=== PATIENT | female | born 1970 | race Caucasian/White ===

== ENCOUNTER → 2020-09-12 11:13 | Outpatient (CLI) | payer OTHER, BC, SELFPAY ==
--- NOTE | ~2020-09-12 | MM_ITS ---
EXAMINATION: MM screening [facility] BI w robbie HISTORY: Screening TECHNIQUE: Craniocaudal and mediolateral oblique 3-D tomosynthesis images were obtained and synthetic 2-D images were generated. CAD analysis was submitted and interpreted. COMPARISON: Comparison to multiple prior studies sequentially, with oldest reviewed study dated 12/2012. BREAST PARENCHYMAL COMPOSITION: There are scattered areas of fibroglandular density. FINDINGS: There is no evidence of suspicious mass, calcification, or architectural distortion to sugg est malignancy in either breast. There has been no suspicious interval change. IMPRESSION: 1. No mammographic evidence of malignancy. 2. Recommend routine screening mammography in one year. BI-RADS Category 1: Negative Reviewed, dictated and finalized at location A.
== END ==
PROVIDERS: Visit Provider Nurse Practitioner
DX: Z12.31 Encounter for screening mammogram for malignant neoplasm of breast (principal)
CPT/HCPCS: 77063; 77067

== ENCOUNTER → 2022-03-02 16:22 | Outpatient (CLI) | payer OTHER, BC, SELFPAY ==
--- NOTE | ~2022-03-02 | MM_ITS ---
EXAMINATION: MM screening [facility] BI w robbie HISTORY: Screening mammogram TECHNIQUE: Craniocaudal and mediolateral oblique 3-D tomosynthesis images were obtained and synthetic 2-D images were generated. CAD analysis was submitted and interpreted. COMPARISON: 09/12/2020, 04/02/2019, 02/09/2018 BREAST PARENCHYMAL COMPOSITION: There are scattered areas of fibroglandular density. FINDINGS: RIGHT BREAST: There is a possible mass in the middle third outer breast 6 cm from the nipple. LEFT BREAST: There is no suspicious mass, calcification, or architectural distortion to suggest malig donell. There has been no significant interval change. IMPRESSION: 1. Possible right breast mass. 2. Additional mammographic views and possible breast ultrasound are recommended. BI-RADS Category 0: Incomplete: Needs additional imaging evaluation. Reviewed, dictated and finalized at location A. IMPRESSION: 1. Possible right breast mass. 2. Additional mammographic views and possible breast ultrasound are recommended . BI-RADS Category 0: Incomplete: Needs additional imaging evaluation.
== END ==
PROVIDERS: PCP Nurse Practitioner; Visit Provider Nurse Practitioner
DX: Z12.31 Encounter for screening mammogram for malignant neoplasm of breast (principal); R92.8 Other abnormal and inconclusive findings on diagnostic imaging of breast
CPT/HCPCS: 77063; 77067

== ENCOUNTER → 2022-03-23 08:15 | Outpatient (CLI) | payer OTHER, BC, SELFPAY ==
--- NOTE | ~2022-03-23 | MMUS_ITS ---
EXAMINATION: MM diagnostic [facility] RT w robbie, US breast RT limited HISTORY: Possible right breast mass on screening mammogram TECHNIQUE: Additional 3-D tomosynthesis images of the right breast were performed and synthetic 2-D i mages were generated. CAD analysis was submitted and interpreted. High resolution limited right breas t ultrasound was performed. COMPARISON: 03/02/2022, 09/12/2020, 04/02/2019 FINDINGS: MAMMOGRAPHIC FINDINGS: There is a return to baseline fibroglandular appearance with spot compression of the right breast in the area questioned on screening mammogram. ULTRASOUND: No suspicious correlate is identified for the mammographic finding in question. There is a 3 mm cyst at the 10:00 location 7 cm from the nipple. IMPRESSION: 1. No mammographic or sonographic evidence of malignancy. 2. Recommend routine screening mammography in one year. BI-RADS Category 2: Benign finding(s). Reviewed, dictated and finalized at location A. IMPRESSION: 1. No mammographic or sonographic evidence of malignancy. 2. Recommend routine screening mammography in one year. BI-RADS Category 2: Benign finding(s).
== END ==
PROVIDERS: PCP Obstetrics & Gynecology Gynecology; Visit Provider Obstetrics & Gynecology Gynecology
DX: R92.8 Other abnormal and inconclusive findings on diagnostic imaging of breast (principal); N60.01 Solitary cyst of right breast
CPT/HCPCS: 76642; 77061; 77065; G0279

== ENCOUNTER → 2022-07-29 13:06 | Outpatient (CLI) | payer OTHER, BC, SELFPAY ==
--- NOTE | ~2022-07-29 | DEXA_ITS ---
Bone Density Report Name: MARY JO YOST Age: 51 Sex: Female Ethnicity: White Date of : 1970 Indication: postmenopausal; screening for osteoporosis; height loss; Referring Provider: PERCY RIZZO Study: Bone densitometry was performed. Exam Date: July 29, 2022 Accession number: [id number] Bone Density: Region BMD T-score Z-score Classification AP Spine (L1-L4) 0.883 -1.5 -0.5 Osteopenia Femoral Neck (Left) 0.708 -1.3 -0.3 Osteopenia Total Hip (Left) 0.910 -0.3 0.4 Normal Femoral Neck (Right) 0.669 -1.6 -0.7 Osteopenia Total Hip (Right) 0.893 -0.4 0.2 Normal Total Hip Mean 0.902 -0.4 0.3 Normal World Health Organization criteria for BMD impression classify patients as: Normal (T-score at or above -1.0), Osteopenia (T-score between -1.0 and -2.5), or Osteoporosis (T-score at or below -2.5). 10-year Fracture Risk(1): Major Osteoporotic Fracture 6.1% Hip Fracture 0.5% Reported Risk Factors: [place] (), Neck BMD=0.669, BMI=29.9 (1) FRAX(R) Version 3.08. Fracture probability calculated for an untreated patient. Fracture probability may be lower if the patient has received treatment. Clinical Information Provided by Patient: Has used the following medications: Vitamin D Patient maximum height was 68.5 Menopause Age: 41 No regular weight bearing exercise Does not regularly consume dairy products Drinks caffeinated beverages Onset of menses at age 10 Number of children 2 Impression: The patient has low bone mass, based on the Right Femoral Neck T-score. The patient has an estimated ten-year risk of hip fracture of 0.5% and an estimated ten-year risk of major fracture of 6.1%, based on the WHO FRAX algorithm. Discussion: BONE DENSITY IS LOW AT ONE OR MORE SKELETAL SITES. This patient's lowest T-score is low at one or more skeletal sites. It meets the World Health Organization's (WHO) criteria for ?low bone mass? (T-score between -1.0 and -2.5). The patient's 10-year risk of fracture as calculated by FRAX is less than the threshold where pharmacological therapy is recommended by the National Osteoporosis Foundation (NOF). However, all treatment decisions require clinical judgment and consideration of individual patient factors, including patient preferences, comorbidities, previous drug use, risk factors not captured in the FRAX model (e.g., frailty, falls, vitamin D deficiency, increased bone turnover, interval significant decline in bone density) and possible under or overestimation of fracture risk by FRAX. The patient should follow a healthful lifestyle (good nutrition with adequate calcium and vitamin D, and appropriate weight-bearing exercise). Follow-Up: Consider repeating this study in 2 to 3 years to reassess this patient's status, or sooner if there is some new cl
== END ==
PROVIDERS: PCP Obstetrics & Gynecology Gynecology; Visit Provider Obstetrics & Gynecology Gynecology
DX: Z78.0 Asymptomatic menopausal state (principal); M85.88 Other specified disorders of bone density and structure, other site; M85.852 Other specified disorders of bone density and structure, left thigh; M85.851 Other specified disorders of bone density and structure, right thigh
CPT/HCPCS: 77080

== ENCOUNTER 2022-12-02 00:38 | Day surgery (SDC) | payer OTHER, BC, SELFPAY ==
[2022-11-18 15:39] VITALS: BMI 28.5
--- NOTE | 2022-12-01 17:45 | PM.HPGS ---
History of Present Illness History of Present Illness Consent: Risks, benefits, and alternatives have been discussed and questions answered. Patient agrees to proceed with procedure. Chief complaint: family hx colon ca, hx of colon polyps Narrative: Margie Barragan is a 52 year old female referred for colon cancer screening. She has a family history of colon cancer. She herself had tubular adenoma removed 11 years ago. Her last colonoscopy, 6 years ago was negative for polyps. Review of Systems Review of Systems: All systems reviewed & are unremarkable except as noted in HPI and below PMFSH Family History Family History (Updated 02/27/14 @ 07:13 by DOCTOR UNKNOWN) Father Hypertension Family history of coronary artery disease Mother Family history of hypothyroidism Family history of coronary artery disease Social History Social History Smoking status: Never smoker Alcohol intake: current Alcohol use details: socially Substance use: never Substance use type: does not use Living arrangements: with family Spiritual care concerns: No Meds Home Medications and Allergies Home Medications Medication Instructions Recorded Confirmed Type Brisdelle 7.5 mg PO DAILY 11/18/22 11/18/22 History Vitamin D3 5,000 units BYMOUTH DAILY 11/18/22 11/18/22 History amlodipine 5 mg tablet 5 mg PO DAILY 11/18/22 11/18/22 History aspirin 325 mg BYMOUTH DAILY 11/18/22 11/18/22 History atorvastatin 40 mg tablet 40 mg PO DAILY 11/18/22 11/18/22 History calcium 1,200 mg PO DAILY 11/18/22 11/18/22 History metoprolol tartrate 25 mg tablet 25 mg PO BID 11/18/22 11/18/22 History paroxetine mesylate(menop.sym) 7.5 7.5 mg PO DAILY 11/18/22 11/18/22 History mg capsule ramipril 10 mg capsule 10 mg PO DAILY 11/18/22 11/18/22 History valacyclovir 500 mg tablet 500 mg PO DAILY 11/18/22 11/18/22 History Allergies Allergy/AdvReac Type Severity Reaction Status Date / Time propoxyphene Allergy Intermediate Hallucinati Verified 11/18/22 15:34 ng codeine Allergy Unknown Nausea Verified 11/18/22 15:34 Exam Const: General: alert Orientation/consciousness: patient oriented x3 Resp: Auscultation: clear to auscultation bilaterally Cardio: Rhythm: regular rhythm GI: GI Palp: Yes Soft to palpation and No Tenderness to palpation present (GI) Neuro: General: patient oriented x3 Assessment and Plan Assessment and plan (1) Colon cancer screening: Code(s): Z12.11 - Encounter for screening for malignant neoplasm of colon Status: Acute Assessment and Plan: Colonoscopy with possible biopsy or polypectomy or cautery or injection of substances.
[2022-12-02 08:14] VITALS: BP 102/70; PULSE 81; RESP 18; TEMP 36.3; O2SAT 81; BMI 28.6
--- NOTE | 2022-12-02 08:18 | SUR.PREOP ---
No test needed per Dr. Steven
[2022-12-02] MEDS: LACTATED RINGERS 1,000 ML 150 ML IV CONT (08:28)
--- NOTE | 2022-12-02 08:40 | P.PNAN_ITS ---
Anes - Initial Pre Proc Eval Procedure: Operation Date: 12/02/22 09:00 Proposed Procedures p Colonoscopy - Ray Vieyra MD Date/Time: 12/02/22 08:40 Surgeon: Ray Vieyra MD Pre Op Diagnosis: family hx colon ca, hx of colon polyps Patient Data Age: 52 Gender: F Height: 1.73 m Weight: 85.5 kg Last Vital Signs Temp 97.4 F L 12/02/22 08:14 Pulse 81 12/02/22 08:14 Resp 18 12/02/22 08:14 BP 102/70 12/02/22 08:14 Pulse Ox 81 L 12/02/22 08:14 O2 Del Method Room Air 12/02/22 08:14 Allergies Allergy/AdvReac Type Severity Reaction Status Date / Time propoxyphene Allergy Intermediate Hallucinati Verified 11/18/22 15:34 ng codeine Allergy Unknown Nausea Verified 11/18/22 15:34 Home Medications Medication Instructions Recorded Confirmed Type Brisdelle 7.5 mg PO DAILY 11/18/22 11/18/22 History Vitamin D3 5,000 units BYMOUTH DAILY 11/18/22 11/18/22 History amlodipine 5 mg tablet 5 mg PO DAILY 11/18/22 11/18/22 History aspirin 325 mg BYMOUTH DAILY 11/18/22 11/18/22 History atorvastatin 40 mg tablet 40 mg PO DAILY 11/18/22 11/18/22 History calcium 1,200 mg PO DAILY 11/18/22 11/18/22 History metoprolol tartrate 25 mg tablet 25 mg PO BID 11/18/22 11/18/22 History paroxetine mesylate(menop.sym) 7.5 7.5 mg PO DAILY 11/18/22 11/18/22 History mg capsule ramipril 10 mg capsule 10 mg PO DAILY 11/18/22 11/18/22 History valacyclovir 500 mg tablet 500 mg PO DAILY 11/18/22 11/18/22 History Patient hx anesthesia problems: none Family hx anesthesia problems: none Results Review: All pre-operative results and documents have been reviewed as part of the pre- operative evaluation. [facility] Family History Family History (Updated 02/27/14 @ 07:13 by DOCTOR UNKNOWN) Father Hypertension Family history of coronary artery disease Mother Family history of hypothyroidism Family history of coronary artery disease Social History Social History Smoking status: Never smoker Alcohol intake: current Alcohol use details: socially Substance use: never Substance use type: does not use Living arrangements: with family Spiritual care concerns: No Anes - Eval Final PreProcedure Day of Procedure 12/02/22 08:40 Patient weight: obese Heart: regular rate and rhythm Lungs: clear to auscultation Airway: Mallampati scale class II Neurological: alert and oriented Last oral intake: >/= 8 hours ASA classification: III Emergent: no Anesthetic plan: proceed Anesthesia type and monitoring: general GIVS and standard monitoring Results Review: All pre-operative results and documents have been reviewed as part of the pre- operative evaluation. Informed Consent: The patient's anesthetic plan and its attendant risks and benefits were discussed with the patient/family/POA. Questions were solicited and answers provided to the satisfaction of the patient/family/POA.
[2022-12-02 09:11] VITALS: BP 86/53; PULSE 70; RESP 18; O2SAT 94
[2022-12-02 09:21] VITALS: BP 92/55; BP 99/54; PULSE 70; RESP 18; O2SAT 94; O2SAT 97
== END 2022-12-02 09:40 | disposition home or self-care (01) ==
PROVIDERS: Visit Provider Internal Medicine Gastroenterology
PROC: 0DJD8ZZ Inspection of Lower Intestinal Tract, Via Natural or Artificial Opening Endoscopic (ICD-10-PCS; CPT 45378; principal; 2022-12-02 09:00)
DX: Z12.11 Encounter for screening for malignant neoplasm of colon (principal); K57.30 Diverticulosis of large intestine without perforation or abscess without bleeding; K64.8 Other hemorrhoids; Z86.010 Personal history of colon polyps; Z80.0 Family history of malignant neoplasm of digestive organs; Z79.82 Long term (current) use of aspirin; E66.9 Obesity, unspecified; Z68.28 Body mass index [BMI] 28.0-28.9, adult
CPT/HCPCS: 45378; J2704; J7120

== ENCOUNTER 2023-08-29 08:02 | Emergency (ER) | payer OTHER, BC, SELFPAY ==
--- NOTE | 2023-08-29 08:11 | ED.URI ---
HPI - URI/Sore Throat General Chief Complaint: Upper Respiratory Infection Stated Complaint: sorethroat Source: patient, RN notes reviewed and old records reviewed Mode of arrival: ambulatory Limitations: no limitations History of Present Illness HPI Narrative: 52 year old female presents to [facility] with complaint of sore throat, fever, chills, myalgia, fatigue started yesterday. Patient states has slight cough but feels it is from throat irritation. Patient has not taken any medications today for symptoms. Patient denies chest pain, dizziness, weakness, shortness of breath. Related Data Home Medications Medication Instructions Recorded Confirmed amlodipine 5 mg tablet 5 mg PO DAILY 08/29/23 08/29/23 aspirin 325 mg tablet 325 mg PO DAILY 08/29/23 08/29/23 atorvastatin 40 mg tablet 40 mg PO DAILY 08/29/23 08/29/23 metoprolol tartrate 25 mg tablet 25 mg PO DAILY 08/29/23 08/29/23 paroxetine mesylate(menop.sym) 7.5 7.5 mg PO DAILY 08/29/23 08/29/23 mg capsule ramipril 10 mg capsule 10 mg PO DAILY 08/29/23 08/29/23 valacyclovir 500 mg tablet 500 mg PO DAILY 08/29/23 08/29/23 Allergies Allergy/AdvReac Type Severity Reaction Status Date / Time codeine AdvReac Intermediate Gastrointestinal Verified 08/29/23 08:07 Upset propoxyphene AdvReac Intermediate Hallucinati Verified 08/29/23 08:07 ng Review of Systems Constitutional: Constitutional: Reports no additional constitutional complaints, Reports body ache(s), Reports chills, Reports fatigue, Reports fever(s) and Denies headache(s) Eyes: Eyes: Reports no additional eye complaints and Denies blurry vision ENT: Reports system reviewed and no additional complaints, except as documented, Denies vertigo, Denies dizziness, Denies ear discharge, Denies otalgia, Denies facial pain, Denies headache(s), Denies nasal congestion, Denies nasal discharge, Denies sinus pain, Denies sinus pressure and Reports sore throat Cardiovascular: Cardiovascular: Reports no additional cardiovascular complaints, Denies chest pain, Denies chest pain at rest, Denies rapid heart rate and Denies dyspnea Respiratory: Respiratory: Reports no additional respiratory complaints, Denies chest congestion, Reports cough, Denies pain on inspiration, Denies pain with cough and Denies dyspnea Gastrointestinal: Gastrointestinal: Denies abdominal pain, Denies diarrhea, Denies nausea and Denies vomiting Integumentary/Breasts: Skin/Breast: Denies rash Neurologic: Reports system reviewed and no additional complaints, except as documented, Denies vertigo, Denies dizziness and Denies headache(s) Endocrine: Endocrine: Denies fatigue PMFSH Family History Family History Father Hypertension Family history of coronary artery disease Mother Family history of hypothyroidism Family history of coronary artery disease Social History Social History Smoking status: Never smoker Alcohol intake: current Alcohol use details: socially Substance use: never Substance use type: does not use Living arrangements: with family Spiritual care concerns: No Comments At the time of my signature, I reviewed and agree with the nursing past medical, surgical, social, and family history. There is no relevant family history pertinent to the patient complaint. Exam Const: General: cooperative, healthy appearing, no acute distress and well nourished Nutritional Appearance: well nourished Orientation/consciousness: patient oriented x3 Limitations: no limitations HENMT: Head: normal to inspection and normocephalic Ears: external ears normal, TM's normal bilaterally, EAC's normal and mastoids normal Face/Nose/Sinus: Normal nasal mucous membranes and turbinates present and normal facial exam Face and sinus: normal facial exam and sinuses nontender Mouth: Yes Normal oral and palatal mucosa present, Yes
[2023-08-29 08:26] VITALS: BP 119/82; PULSE 109; RESP 16; TEMP 36.7; O2SAT 98
== END 2023-08-29 08:48 | disposition home or self-care (01) ==
PROVIDERS: Emergency Provider Registered Nurse
DX: J02.9 Acute pharyngitis, unspecified (principal); Z20.822 Contact with and (suspected) exposure to COVID-19
CPT/HCPCS: 87081; 87426; 87804; 87880; 99213; G0463

== ENCOUNTER 2023-09-26 13:45 | Outpatient (CLI) | payer OTHER, BC, SELFPAY ==
--- NOTE | ~2023-09-26 | MM_ITS ---
EXAMINATION: MM screening [facility] BI w robbie HISTORY: Screening mammogram TECHNIQUE: Craniocaudal and mediolateral oblique 3-D tomosynthesis images were obtained and synthetic 2-D images were generated. CAD analysis was submitted and interpreted. COMPARISON: 03/23/2022 diagnostic right mammogram and limited right breast ultrasound 03/02/2022, 09/12/2020 screening mammogram examinations BREAST PARENCHYMAL COMPOSITION: There are scattered areas of fibroglandular density. FINDINGS: There is chronic focal scarring upper outer quadrant of the right breast; this is likely du e to prior reported benign right lumpectomy. There is no evidence of suspicious mass, calcification, or new architectural distortion to suggest malignancy in either breast. There has been no suspicious interval change. IMPRESSION: 1. No mammographic evidence of malignancy. 2. Recommend routine screening mammography in one year. BI-RADS Category 2: Benign finding(s). Reviewed, dictated and finalized at location A.
== END 2023-09-26 13:46 | disposition home or self-care (01) ==
LOC: CHSIMG 13:48
PROVIDERS: Visit Provider Advanced Practice Midwife
DX: Z12.31 Encounter for screening mammogram for malignant neoplasm of breast (principal)
CPT/HCPCS: 77063; 77067

== ENCOUNTER 2024-01-16 10:55 | Outpatient (CLI) | payer OTHER, BC, SELFPAY ==
--- NOTE | ~2024-01-16 | US_ITS ---
Pelvic ultrasound. Clinical History: Pelvic pain Technique: Realtime transabdominal and transvaginal scanning of the pelvis was performed. Color flow Doppler and Doppler spectral analysis were performed. Findings: The uterus is anteverted. The endometrial stripe has a thickness of 6 mm. No focal mass is identified. The right ovary is not visualized. No significant right ovarian or adnexal mass is seen. The left ovary measures 2.5 x 1.4 x 1.8 cm. No significant left ovarian or adnexal mass is seen. There is no evidence of free fluid in the cul de sac. Impression: No significant abnormality seen. Right ovary not visualized. Reviewed, dictated and finalized at location . Impression: No significant abnormality seen. Right ovary not visualized.
== END 2024-01-16 10:56 ==
LOC: MICIMG 10:56
PROVIDERS: PCP Nurse Practitioner Women's Health; Visit Provider Nurse Practitioner Women's Health
DX: R10.2 Pelvic and perineal pain (principal)
CPT/HCPCS: 76830

== ENCOUNTER 2024-01-28 21:46 | Emergency (ER) | payer OTHER, BC, SELFPAY ==
[2024-01-28 21:52] VITALS: BP 117/86; PULSE 116; RESP 17; TEMP 37.4; O2SAT 96
--- NOTE | 2024-01-28 22:33 | ED.SKABFB ---
HPI - Skin/Abscess/Foreign Bdy General Chief complaint: Skin/Abscess/Foreign Body Stated complaint: spider bite on toe Time Seen by Provider: 01/28/24 22:28 Source: patient Mode of arrival: ambulatory Limitations: no limitations History of Present Illness HPI narrative: Margie is a 53-year-old female patient presenting to the ER today for possible insect bite in between her 4th and 5th toe. She reports she went down the basement was trying on some old shoes and thinks she may have been bitten by a spider. She is concerned that it may be a brown recluse bite. States that the area was itchy at 1st but now it is painful old and blistered with localized redness and swelling. Denies any fever, chills, body aches. Related Data Home Medications Medication Instructions Recorded Confirmed amlodipine 5 mg tablet 5 mg PO DAILY 08/29/23 08/29/23 aspirin 325 mg tablet 325 mg PO DAILY 08/29/23 08/29/23 atorvastatin 40 mg tablet 40 mg PO DAILY 08/29/23 08/29/23 metoprolol tartrate 25 mg tablet 25 mg PO DAILY 08/29/23 08/29/23 paroxetine mesylate(menop.sym) 7.5 7.5 mg PO DAILY 08/29/23 08/29/23 mg capsule ramipril 10 mg capsule 10 mg PO DAILY 08/29/23 08/29/23 valacyclovir 500 mg tablet 500 mg PO DAILY 08/29/23 08/29/23 Allergies Allergy/AdvReac Type Severity Reaction Status Date / Time codeine AdvReac Intermediate Gastrointestinal Verified 01/28/24 21:56 Upset propoxyphene AdvReac Intermediate Hallucinati Verified 01/28/24 21:56 ng Review of Systems Review of Systems: Pertinent positives per HPI. Patient denies any fever, chills, headache, visual changes, dizziness, cough, runny nose, sore throat, shortness of breath, chest pain, palpitations, nausea, vomiting, diarrhea, constipation, abdominal pain, or any urinary issues. [facility] Family History Family History Father Hypertension Family history of coronary artery disease Mother Family history of hypothyroidism Family history of coronary artery disease Social History Social History Smoking status: Never smoker Alcohol intake: current Alcohol use details: socially Substance use: never Substance use type: does not use Living arrangements: with family Spiritual care concerns: No Comments At the time of my signature, I reviewed and agree with the nursing past medical, surgical, social, and family history. There is no relevant family history pertinent to the patient complaint. Exam Narrative: General: Well-developed, well nourished, in no apparent distress Head: Normocephalic, atraumatic. Cardio: Regular rate and rhythm, s1 and s2 normal, no murmur appreciated. Resp: Clear to auscultation bilaterally, no rhonchi, rales, wheezing or rubs. Integumentary: Reader, warm, and dry, possible insect bite in between the 4th and 5th toes of the left foot. Blistered area with mild redness and swelling, tenderness to palpation with mild erythema Course Course Emergency Course: Portions of this record may have been created with voice recognition software. Vital Signs Vital signs: Vital Signs Temperature 37.4 C 01/28/24 21:52 Pulse Rate 116 H 01/28/24 21:52 Respiratory Rate 17 01/28/24 21:52 Blood Pressure 117/86 01/28/24 21:52 Pulse Oximetry 96 01/28/24 21:52 Oxygen Delivery Room Air 01/28/24 21:52 Temperature 37.4 C 01/28/24 21:52 Pulse Rate 116 H 01/28/24 21:52 Respiratory Rate 17 01/28/24 21:52 Blood Pressure 117/86 01/28/24 21:52 Pulse Oximetry 96 01/28/24 21:52 Oxygen Delivery Room Air 01/28/24 21:52 Vital signs reviewed MDM - Skin/Abscess/Foreign Bdy MDM Narrative Medical decision making narrative: At the time of visit patient is resting comfortably on the exam table. Patient appears to be nontoxic. Plan: I suspect patient has a insect bite infection. Prescription
[2024-01-28] MEDS: CEPHALEXIN 500 MG CAPSULE PO (22:47)
[2024-01-28 22:55] VITALS: BP 114/76; PULSE 99; RESP 15; O2SAT 98
== END 2024-01-28 22:55 | disposition home or self-care (01) ==
LOC: ANHED 22:45
PROVIDERS: Emergency Provider Nurse Practitioner Family
DX: S90.862A Insect bite (nonvenomous), left foot, initial encounter (principal); W57.XXXA Bitten or stung by nonvenomous insect and other nonvenomous arthropods, initial encounter
CPT/HCPCS: 99283; A9270

== ENCOUNTER 2024-09-21 16:13 | Emergency (ER) | payer OTHER, SELFPAY ==
[2024-09-21] VITALS (11 sets, daily range): BP systolic 126–147; BP diastolic 77–103; PULSE 78–98; RESP 13–23; TEMP 36.5; O2SAT 91–100
--- NOTE | ~2024-09-21 | XR_ITS ---
XR chest 2V DATE: 09/21/2024 16:43 INDICATION: Chest pain TECHNIQUE: 2 views COMPARISON: None FINDINGS: Status post sternotomy. Normal heart size. No hilar or mediastinal enlargement. No pulmonary infiltrate or consolidation, pleural effusion or pulmonary vascular congestion or pneumo thorax. Osteopenia. IMPRESSION: Status post sternotomy No active cardiopulmonary disease Reviewed, dictated and finalized at location A.
--- NOTE | 2024-09-21 16:14 | ECG_ITS ---
Test Date: 2024-09-21 16:21:54 Measurements Intervals [place] Rate: 95 P: 15 W[place]: 156 QRS: 59 QRSD: 98 T: 32 QT: 349 QTc: 441 Interpretive Statements SINUS RHYTHM No previous ECG available for comparison Electronically Signed On 09-21-2024 17:44:11 CDT by Daniel Howard M.D.
--- OUTSIDE RECORDS SUMMARY | 2024-09-21 16:15 | XMS_ITS | Clinical Summary ---
Author Organization [email or web address] Address [address] [place] [address] Care Team Providers Care Jewelry Facer Name Role Phone Shaji Escalera MD Primary Care Provider [phone] Source Comments [email or web address],non-owned Affiliates and Associated Physician Practices is amultiple site organization consisting of ambulatory clinics and hospital sitesin [place], [place], [place] and [place]. This disclosure is being madepursuant to the Care Everywhere program and may not contain all information available regarding this patient. Last updated 18.[email or web address] Allergies Active Allergy Reactions Criticality Noted Date Comments Codeine Vomiting Medium 10/17/2022 Medications * Be aware that medications may not be up to date on this document. Alwaysverify current medications with the patient. Medication Sig Dispensed Refills Start Date End Date Status amLODIPine (Norvasc) 5 MG tablet Take 1 (one) tablet by mouth once daily 06/23/2022 Active atorvastatin (Lipitor) 40 MG tablet Take 1 (one) tablet by mouth once daily 03/21/2022 Active metoprolol tartrate IR (Lopressor) 25 MG tablet Take 1 (one) tablet by mouth 2 times daily 08/10/2022 Active ramipril (Altace) 10 MG capsule Take 1 (one) capsule by mouth once daily 03/14/2022 Active valACYclovir (Valtrex) 500 MG tablet Take 1 (one) tablet by mouth once daily 09/27/2022 Active PARoxetine mesylate (Brisdelle) 7.5 MG capsule Take 1 (one) capsule by mouth at bedtime Active Vitamin D, Ergocalciferol, 72253 units CAPS Take 1 tablet by mouth once daily Active aspirin (Aspirin) 325 MG tablet Take 1 (one) tablet by mouth once daily Active Calcium Carbonate-Vit D-Min (CALCIUM 1200 PO) Take 1 tablet by mouth once daily Active oxyCODONE, immediate release, (Roxicodone) 5 MG tabletIndications:Po stoperative state Take 1 (one) tablet by mouth every 4 hours as needed for Pain 5 tablet 01/05/2023 Active ibuprofen (Motrin) 600 MG tablet Take 1 (one) tablet by mouth every 6 hours as needed for Pain 30 tablet 01/05/2023 Active docusate sodium (Colace) 100 MG capsule Take 1 (one) capsule by mouth 2 times daily 60 capsule 01/05/2023 Active Edgar Carb-Mag Hydrox-Simeth (Mylanta Coat & Cool) 1200-270-80 MG/10ML SUSP Take by mouth once daily Active Active Problems Problem Noted Date Diagnosed Date Coronary artery disease [place] coronary artery of [place] heart without angina pectoris 02/02/2017 Overview (10/17/2022): Last Assessment & Plan: No symptoms of myocardial ischemia. She is 10 years out from bypass surgery which was done mostly using arterial grafts. Risk factors have been under good control. A stress echo less than two years ago was nonischemic. Continue aspirin and metoprolol. She is cleared for bladder surgery without further testing. Essential hypertension 02/02/2017 Overview (10/17/2022): Last Assessment & Plan: Blood pressure is adequately controlled on current regimen. No change was made. Pure hypercholesterolemia 02/02/2017 Overview (10/17/2022): Last Assessment & Plan: On chronic lipid lowering therapy with good control. No changes made. Family History Medical History Relation Name Comments Cancer - Colon Father High Cholesterol Father Hypertension Father CAD (Coronary Artery Disease) Mother High Cholesterol Mother Hypertension Mother Thyroid Disease Mother Relation Name Status Comments Father Mother Social History Tobacco Use Types Packs/Day Years Used Date Smoking Tobacco: Never Passive Smoke Exposure: Never Smokeless Tobacco: Never Tobacco Cessation:Counseling Given: Not Answered Alcohol Use Standard Drinks/Week Comments Yes 2 (1 standard drink = 0.6 oz pur e alcohol) Sex and Gender Information Value Date Recorded Sex Assigned at Not on file Gender Identity Not on file Sexual Orientation Not on file Last Filed Vital Signs Vital Sign Reading Time Taken Comments Blood Pressure 120/70 02/09/2023 3:56 PM CDT Pulse 64 01/05/2023 11:42 AM CDT Temperature 36.1 C (96.9 F) 02/09/2023 3:56 PM CDT Respiratory Rate 16 01/05/2023 11:4 2 AM CDT Oxygen Saturation 96% 01/05/2023 11: 42 AM CDT Inhaled Oxygen Concentration - - Weight 85.6 kg (188 lb 12.8 oz) 02/09/2023 3:56 PM CDT Height 174 cm (5' 8.5 ) 02/09/2023 3:56 PM CDT Body Mass Index 28.29 02/09/2023 3:56 PM CDT Plan of Treatment Health Maintenance Due Date Last Done Comments COLOGUARD (AGES 45-75) - COLON CA SCREENING 1968 COLON MONITORING 1968 COLONOSCOPY - COLON CA SCREENING 1968 CT COLONOGRAPHY - COLON CA SCREENING 1968 Colorectal Cancer Screening 1968 FIT - COLON CA SCREENING 1968 FLEX SIG - COLON CA SCREENING 1968 MAMMOGRAM 1968 PAP SMEAR 1968 HIV SCREENING 11/29/1983 HEPATITIS C SCREENING 11/24/1986 DTAP/TDAP/TD VACCINES (1 - Tdap) 11/29/1987 HEPATITIS B VACCINE (1 of 3 - 19+ 3-dose series) 11/29/1987 PNEUMOCOCCAL VACCINE 50+ (1 of 1 - PCV) 2018 ZOSTER VACCINE (1 of 2) 2018 COVID-19 VACCINE ( - season) 2024 06/18/2021, 09/22/2020, 08/13/2020 INFLUENZA VACCINE (#1) 2024 , 04/05/2021, 04/22/2015, Additional history exists DEPRESSION SCREENING 07/03/2024 SCREENING FOR DIABETES 12/27/2025 12/27/2022 HIB VACCINE Aged Out No longer eligi ble based on patient's age to complete this topic HPV VACCINE Aged Out No longer eligi ble based on patient's age to complete this topic MENINGOCOCCAL (Group B) VACCINE SHARED DECISION-MAKING Aged Out No longer eligible based on patient's age to complete this topic MENINGOCOCCAL GROUPS A/C/Y/W VACCINE Aged Out No longer eligible based on patient's age to complete this topic PNEUMOCOCCAL VACCINE Aged Out No long er eligible based on patient's age to complete this topic Medical Devices Implanted Type Area Billet Grinder Device Identifier Shelf Expiration Date Model / Serial / Lot Sys Ureth Supp David Adv Fit Trnvg Polypro Implanted:Qty: 1 on 01/05/2023 by Lluvia Ruano MD at [facility] [employer] 06/20/2024 [id number] / / [id number] Procedures Procedure Name Priority Date/Time Associated Diagnosis Comments BASIC METABOLIC PANEL (CALCIUM TOTAL) Pre-Op 12/27/2022 12:19 PM CDT Preoperative examination from Last 3 Months or Most Recently Relevant to Health Maintenance Results * (ABNORMAL) BASIC METABOLIC PANEL (CALCIUM TOTAL) (12/27/2022 12:19 PM CDT) Glucose 97 70 - 105 mg/dL 12/27/2022 1:13 PM CDT [facility] Sodium 143 136 - 145 mmol/L 12/27/2022 1:13 PM CDT [facility] Potassium 3.9 3.5 - 5.1 mmol/L 12/27/2022 1:13 PM CDT [facility] Chloride 109(H) 98 - 107 mmol/L 12/27/2022 1:13 PM CDT [facility] CO2 25 23 - 31 mmol/L 12/27/2022 1:13 PM CDT [facility] Calcium 9.0 8.4 - 10.4 mg/dL 12/27/2022 1:13 PM CDT [facility] Anion Gap 9 8 - 18 mmol/L 12/27/2022 1:13 PM CDT [facility] BUN 12 9.8 - 20.1 mg/dL 12/27/2022 1:13 PM CDT [facility] Creatinine 0.97 0.57 - 1.11 mg/dL 12/27/2022 1:13 PM CDT [facility] eGFR by CKD-EPI 69(L) >=90 mL/min/1.7 3 m2 12/27/2022 1:13 PM CDT [facility] Blood BLOOD SPECIMEN / Unknown Venipuncture / Unknown 12/27/2022 12:19 PM CDT 12/27/2022 12:50 PM CDT Lluvia Ruano MD LAB - CHEMISTRY ORD ERABLES [facility] [address] [place] [address] from Last 3 Months or Most Recently Relevant to Health Maintenance Care Teams Jewelry Facer Relationship Specialty Start Date End Date Shaji Escalera MD [address] [place] [address] PCP - General 08/25/22
--- OUTSIDE RECORDS SUMMARY | 2024-09-21 16:15 | XMS_ITS | Encounter Summary ---
Author Organization [facility] Healthcare Address [address] [place] [address] Care Team Providers Care Transport Pilot Name Role Phone Linda Mora MD Primary Care Provider Reason for Visit * Reason Onset Date Comments Authorization/Certification 09/09/2024 Encounter Details Date Type Department Care Team (Late st Contact Info) Description 09/09/2024 Telephone [facility] Medical Group Primary Care at [facility] [address] [place] [address] [phone] Linda Mora MD [address] [address] Authorization/Certifica tion Social History Tobacco Use Types Packs/Day Years Used Date Smoking Tobacco: Never Cigarettes Smokeless Tobacco: Never Alcohol Use Standard Drinks/Week Comments Yes 0 (1 standard drink = 0.6 oz pur e alcohol) PHQ-2 Answer Date Recorded PHQ-2 Total Score (If total score is 3 or more points, staff should administer the PHQ-9) 0 05/29/2024 PHQ-9 Answer Date Recorded PHQ-9 Total Score 0 05/29/2024 Personal Safety Answer Date Recorded Have you ever been in or are you currently in a harmful physical or emotional relationship or is someone making you feel afraid or unsafe? Denies 01/30/2024 Comments No Sex and Gender Information Value Date Recorded Sex Assigned at Not on file Legal Sex Female 3:07 PM PLASTIC TILE SETTER Gender Identity Not on file Sexual Orientation Not on file documented as of this encounter Miscellaneous Notes * Telephone Encounter - Monica Rai MA - 09/09/2024 1:46 PM CDT A order for [facility] has been placed. * Telephone Encounter - Teresa Crooks - 09/09/2024 1:08 PM CDT Certification for Test/Procedure Type of Certification Needed: Pre-Cert for Test/Procedure Type of caller:Patient/other caller Type of test/procedure needed: At home sleep study Reason for test/procedure: Patient wakes herself up snoring. Is insurance in chart accurate? [facility] Facility name: Patient not sure. It is her first time getting this done Facility phone#: Wherever Dr. Mora suggests for the at home sleep study. Patient states she heard there is a place that will deliver the devise to patients home. Date test/procedure is scheduled: Not scheduled. Needs assistance setting up from office. Additional Comments: Patients secondary insurance has changed to: [employer] Insurance MemID: [id number] [employer] Does message need to be routed? Yes-Action Needed documented in this encounter Plan of Treatment Not on file documented as of this encounter Visit Diagnoses Not on filedocumented in this encounter Care Teams Transport Pilot Relationship Specialty Start Date End Date Linda Mora MD [address] [address] PCP - General Internal Medicine 05/29/24 documented as of this encounter
--- OUTSIDE RECORDS SUMMARY | 2024-09-21 16:15 | XMS_ITS | Clinical Summary ---
Author Organization [facility] D Address [address] [place] [id number] Care Team Providers Care Brown Sourer Name Role Phone Linda Mora MD Primary Care Provider Allergies Active Allergy Reactions Criticality Noted Date Comments Codeine Propoxyphene-Acetaminophen Medications PARoxetine mesylate (BRISDELLE) 7.5 mg capsule take 1 capsule by oral route every day at bedtime 0 0 09/17/2014 Active cholecalciferol (cholecalcifero l) 400 unit tablet 1 tablet daily 0 02/21/2012 Active valACYclovir (VALTREX) 500 mg tablet take 1 tablet (500MG) by oral route every day 0 02/21/2012 Active calcium carb-mag hydrox-simeth 1,200 mg-270 mg -80 mg/10 mL suspension Take by mouth daily Active aspirin 81 mg chewable tabletIndicatio ns:acute myocardial infarction Take 1 tablet (81 mg total) by mouth daily 90 tablet 3 01/23/2024 Active amLODIPine (NORVASC) 5 mg tablet Take 1 tablet (5 mg total) by mouth daily 90 tablet 3 01/23/2024 Active ramipriL (ALTACE) 10 mg capsule Take 1 capsule (10 mg total) by mouth daily 90 capsule 3 01/23/2024 Active atorvastatin (LIPITOR) 40 mg tablet Take 1 tablet (40 mg total) by mouth daily 90 tablet 3 01/23/2024 Active mupirocin (BACTROBAN) 2 % ointment 01/29/2024 Active benzonatate (TESSALON) 200 mg capsuleIndicati ons:Viral URI with cough Take 1 capsule (200 mg total) by mouth 3 (three) times a day as needed for cough 30 capsule 06/11/2024 Active Active Problems Problem Noted Date Diagnosed Date Encounter for annual physical exam 05/29/2024 Assessment & Plan (05/29/2024 11:33 AM PIECE WORK CHECKER): Reviewed health maintenance issues - diet, exercise, safety issues, smoking status, alcohol use, immunizations, breast exam, papsmear, mammogram (age 40 to 75), screening colonoscopy (age 45 to 75), bone density study for menopausal female. Reviewed medical problems and medication list. Annual labs ordered as appropriate. She will have her mammography, colonoscopy, and pap smear records faxed to our office. History of melanoma 05/29/2024 Assessment & Plan (05/29/2024 11:20 AM PIECE WORK CHECKER): Chronic, stable. S/p Mohs Follows with Dermatology, seen for skin exam 2-3 times per year. Serum total bilirubin elevated 05/29/2024 Assessment & Plan (05/29/2024 11:11 AM PIECE WORK CHECKER): T bili elevated to 1.8 when checked during acute illness in 01/2024. Repeat today with fractionated bilirubin. 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 Is on paroxetine 7.5 mg daily prescribed by her OBGYN for vasomotor symptoms. Family history of colon cancer 05/29/2024 Assessment & Plan (05/29/2024 11:15 AM PIECE WORK CHECKER): Chronic, stable. Has been getting regular colonoscopies which have all been normal, last was less than 5 years ago. Given my card to have her endoscopist fax over records from recent colonoscopy. Ptosis of both eyelids 05/29/2024 Assessment & Plan (07/24/2024 8:24 AM PIECE WORK CHECKER): -longstanding however has worsened over the last year or so -denies diplopia, weakness, difficulty swallowing -father had same issue and had surgery RUL>RODO -pt does endorse difficulty with superior peripheral vision, feels vision is greatly improved with manual lifting of lids -will refer to oculoplastics for ptosis repair next available Assessment & Plan (05/29/2024 11:24 AM PIECE WORK CHECKER): Chronic, ongoing for the last 6 months. Her father had same issue, underwent blepharoplasty. Referral to Ophtho for evaluation. Apnea 05/29/2024 Assessment & Plan (05/29/2024 11:26 AM PIECE WORK CHECKER): Chronic, has been saying she snores for years but lately has been gasping/choking at night and thinks she may stop breathing. Home sleep study ordered. Coronary artery disease invo lving [place] coronary artery of [place] heart without angina pectoris 02/02/2017 Assessment & Plan (05/29/2024 10:37 AM PIECE WORK CHECKER): Chronic, stable. ASCVD: The ASCVD Risk score (Teagan BROWN, et al., 2019) failed to calculate for the following reasons: Cannot find a previous HDL lab The valid total cholesterol range is 130 to 320 mg/dL Stress test: exercise stress 01/2019 normal Previous intervention: s/p CABG Medical Therapy: Anti-Platelet: aspirin 81 mg daily BB: KHANG: ramipril 10 mg daily Anti-anginals: Statin: atorvastatin 40 mg daily Follows with Cardiology Assessment & Plan (11/12/2020 4:22 PM CDT): No symptoms of myocardial ischemia. She is 10 years out from bypass surgery which was done mostly using arterial grafts. Risk factors have been under good control. A stress echo less than two years ago was nonischemic. Continue aspirin and metoprolol. She is cleared for bladder surgery without further testing. Assessment & Plan (02/01/2019 11:47 AM CDT): Asymptomatic following multivessel coronary artery bypass grafting in 2010. Aside from a saphenous vein graft to the posterior descending branch of the left coronary artery, she received all arterial grafts. She has not had an ischemia evaluation in five years, so, even in the absence of symptoms, I recommend a stress echo. Continue aspirin. Assessment & Plan (02/02/2018 1:06 PM CDT): Asymptomatic. Continue Assessment & Plan (02/02/2017 1:48 PM CDT): No symptoms of myocardial ischemia. Continue aspirin and metoprolol. Essential hypertension 02/02/2017 Assessment & Plan (05/29/2024 10:44 AM PIECE WORK CHECKER): Chronic, stable. Complications: None BP controlled on amlodipine 5 mg daily, ramipril 10 mg daily, will continue current management. Counseled patient on importance of a diet low in salt, processed sugar, and saturated fat for blood pressure management. Assessment & Plan (11/12/2020 4:21 PM CDT): Blood pressure is adequately controlled on current regimen. No change was made. Assessment & Plan (02/01/2019 11:47 AM CDT): Blood pressure is adequately controlled on current regimen. No change was made. Assessment & Plan (02/02/2018 1:07 PM CDT): Blood pressure is adequately controlled on current regimen. No change was made. Assessment & Plan (02/02/2017 1:48 PM CDT): Blood pressure is adequately controlled on current regimen. No change was made. Pure hypercholesterolemia 02/02/2017 Assessment & Plan (05/29/2024 10:46 AM PIECE WORK CHECKER): Chronic, stable. ASCVD: The ASCVD Risk score (Teagan BROWN, et al., 2019) failed to calculate for the following reasons: Cannot find a previous HDL lab The valid total cholesterol range is 130 to 320 mg/dL FLP ordered yearly Continue current medications: asa 81 mg daily, atorvastatin 40 mg daily Assessment & Plan (11/12/2020 4:21 PM CDT): On chronic lipid lowering therapy with good control. No changes made. Assessment & Plan (02/01/2019 11:48 AM CDT): On chronic lipid lowering therapy with good control. No changes made. Assessment & Plan (02/02/2018 1:06 PM CDT): On chronic lipid lowering therapy with good control. No changes made. Assessment & Plan (02/02/2017 1:49 PM CDT): LDL checked today is 92. While this is not bad, I would be happy year for which down below 70 particularly with her history of premature coronary artery disease. We discussed this, and I recommended switching from simvastatin to atorvastatin 40 mg daily. She is in agreement with that. Encounters Date Type Department Care Team Description 09/11/2024 Orders Only [facility] Information Management [address] [place] [address] Scanning, Provider 09/09/2024 Telephone [facility] Medical Group Primary Care at [facility] [address] [place] [address] Linda Mora MD Authorization/Certif ication 07/23/2024 3:00 PM PIECE WORK CHECKER Office Visit [facility] [address] [place] [address] Monica Hansen, OD Ptosis of both eyelids 06/24/2024 Telephone [facility] Medical [facility] Cardiology [address] [place] [address] Yoshi Delatorre MD Test Results from Last 3 Months Immunizations Immunization Administration Dates Next Due Influenza, Quadrivalent, Nikia l Culture-based MDCK, Preservative Free, Antibiotic Free, Intramuscular 04/08/2022 Influenza, Trivalent, IM (MDV) 04/05/2021,2013,07/15/2012 Influenza, Trivalent, Preser vative Free, Intramuscular 05/29/2024,04/22/2015 Moderna SARS-CoV-2 Monovalen t Vaccination (12+ YRS) 09/22/2020,08/13/2020 Tdap 01/31/2024 Surgical History Surgery Date Site/Laterality Comments OTHER SURGICAL HISTORY 2008 Benign breast lumpectomy OTHER SURGICAL HISTORY 2005 Right knee ACL replacement OTHER SURGICAL HISTORY 1990 Right ovariectomry for a cyst OTHER SURGICAL HISTORY 1990 Removal of benign tumor CORONARY ARTERY BYPASS GRAFT Coronary Artery Bypass Graft KNEE SURGERY ACL repair BREAST SURGERY R breast cyst, benign OOPHERECTOMY Right cyst removed, benign Medical History Medical History Date Comments Hx Other Medical Anxiety and fat igue Hypertension Hyperlipidemia Heart valve disease Anxiety Heart disease Family History Medical History Relation Name Comments Colon cancer Father Chris Kurtz Hypertension Father Chris Kurtz Arrhythmia Mother Katerina Kurtz Arrhythmias; Heart disease Mother Katerina Kurtz Breast cancer Neg Hx Relation Name Status Comments Father Chris Kurtz Mother Katerina Kurtz Alive Social History Tobacco Use Types Packs/Day Years [...] on file Legal Sex Female 3:07 PM PIECE WORK CHECKER Gender Identity Not on file Sexual Orientation Not on file Obstetrics History Last Filed Vital Signs Vital Sign Reading Time Taken Comments Blood Pressure 122/78 06/11/2024 8:14 AM PIECE WORK CHECKER Pulse 102 06/11/2024 8:14 AM PIECE WORK CHECKER Temperature 36.4 C (97.6 F) 06/11/2024 8:14 AM PIECE WORK CHECKER Respiratory Rate 20 06/11/2024 8:14 AM PIECE WORK CHECKER Oxygen Saturation 98% 06/11/2024 8:14 AM PIECE WORK CHECKER Inhaled Oxygen Concentration - - Weight 86.2 kg (190 lb) 06/11/2024 8:14 AM PIECE WORK CHECKER Height 172.7 cm (5' 8 ) 05/29/2024 11:01 AM PIECE WORK CHECKER Body Mass Index 28.89 05/29/2024 11:01 AM PIECE WORK CHECKER Plan of Treatment Health Maintenance Due Date Last Done Comments Hepatitis B Screening 1986 Zoster Vaccine (1 of 2) 2018 Covid-19 Vaccine ( season) 2024 06/18/2021, 09/22/2020, 08/13/2020 Cervical Cancer Screening 08/21/2024 08/21/2023 Breast Cancer Screening-Mammogram 09/25/2024 09/26/2023, 09/14/2020 Depression Screening 05/29/2025 05/29/2024, 05/29/20 24 Regular Well Visit/Exam 18-64 05/29/2025 05/29/2024 Colon Cancer Screening-Colonoscopy 12/02/2032 12/02/2022 DTaP/Tdap/Td Vaccine (2 - Td or Tdap) 01/30/2034 01/31/2024 Colon Cancer Screening-CT Colonography Discontinued 12/02/2022 Colon Cancer Screening-DNA Stool Discontinued 12/02/2022 Colon Cancer Screening-FIT Discontinued 12/02/2022 Colon Cancer Screening-Sigmoidoscopy Discontinued 12/02/2022 Hepatitis C Screening Completed 05/29/2024 Influenza Vaccine Completed 05/29/2024, , 04/05/2021, Additional history exists Pneumococcal vaccine <65 Aged Out No longer eligible based on patient's age to complete this topic Procedures Procedure Name Priority Date/Time Associated Diagnosis Comments SCAN - OTHER ORDERS 09/11/2024 1 1:11 AM CDT HEPATITIS C ANTIBODY Routine 05/29/2024 11:45 AM PIECE WORK CHECKER Need for hepatitis C screening test COLONOSCOPY Routine 12/02/2022 SCREENING MAMMOGRAM BILATERAL W RONAK Schedule Routine, Read Routine (OP Routine) 09/14/2020 from Last 3 Months or Most Recently Relevant to Health Maintenance Results * SCAN - OTHER ORDERS (09/11/2024 11:11 AM CDT) us Provider Scanning Final Result * Hepatitis C antibody Blood (05/29/2024 11:45 AM PIECE WORK CHECKER) Hep C Ab Nonreactive Nonreactive Comment: Interpretive Data Nonreactive: Antibodies to HCV not detected. Does NOT exclude the possibility of recent exposure to HCV. Equivocal: Equivocal for HCV antibodies. Supplemental molecular testing will be automatically performed to determine infection status in accordance with current CDC screening recommendations. Reactive: Positive for HCV antibodies. This may represent current or past HCV infection. Supplemental molecular testing will be automatically performed to determine current infection status in accordance with current CDC screening recommendations. Interpretive data was last revised on 2019. Blood 05/29/2024 11:4 5 AM PIECE WORK CHECKER 05/29/2024 6:29 PM PIECE WORK CHECKER Linda Mora MD LAB MICROBIOLOGY - GEN ERAL ORDERABLES Final Result [facility] [address] Department [place] [address] * (ABNORMAL) Colonoscopy (12/02/2022) Anatomical Region Laterality Modality Other Historical Provider ENDOSCOPY PROCEDURES Nancy l Result * Screening Mammogram Bilateral W Ronak (09/14/2020) Anatomical Region Laterality Modality Breast Bilateral Mammography Historical Provider IMG MAMMO PROCEDURES Nancy l Result from Last 3 Months or Most Recently Relevant to Health Maintenance Insurance [facility] Address: [facility] [id number] [place] [address] [facility] HMO/PPO Address: [address] [address] [place] [address] [facility] Address: [facility] [id number] [place] [address] [facility] HMO/PPO Address: [address] [address] [place] [address] [facility] [employer] B[employer]EFIT PLAN Care Teams Brown Sourer Relationship Specialty Start Date End Date Linda Mora MD [address] [address] PCP - General Internal Medicine 05/29/24
--- OUTSIDE RECORDS SUMMARY | 2024-09-21 16:15 | XMS_ITS | Referral Summary ---
Author Organization [facility] D Address [address] [place] [address] Care Team Providers Care Multiple Drill Operator Name Role Phone Linad Mora MD Primary Care Provider Encounters Date Type Department Care Team Description 09/11/2024 Orders Only [facility] Health Information Management [address] [place] [address] Scanning, Provider 09/09/2024 Telephone [facility] Medical Group Primary Care at [facility] [address] [place] [address] Linda Mora MD Authorization/Certif ication 07/23/2024 3:00 PM RED HAT LINUX ADMINISTRATOR Office Visit [facility] [address] [place] [address] Monica Hansen, OD Ptosis of both eyelids 06/24/2024 Telephone [facility] Medical [facility] Cardiology [address] [place] [address] Yoshi Delatorre MD Test Results from Last 3 Months Allergies Active Allergy Reactions Criticality Noted Date [...] 05/29/2024 Assessment & Plan (05/29/2024 11:33 AM RED HAT LINUX ADMINISTRATOR): Reviewed health maintenance issues - diet, exercise, [...] 05/29/2024 Assessment & Plan (05/29/2024 11:20 AM RED HAT LINUX ADMINISTRATOR): Chronic, stable. S/p Mohs Follows with Dermatology, seen for skin exam 2-3 times per year. Serum total bilirubin elevated 05/29/2024 Assessment & Plan (05/29/2024 11:11 AM RED HAT LINUX ADMINISTRATOR): T bili elevated to 1.8 when checked during acute illness in 01/2024. Repeat today with fractionated bilirubin. 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 Is on paroxetine 7.5 mg daily prescribed by her OBGYN for vasomotor symptoms. Family history of colon cancer 05/29/2024 Assessment & Plan (05/29/2024 11:15 AM RED HAT LINUX ADMINISTRATOR): Chronic, stable. Has been getting regular colonoscopies which have all been normal, last was less than 5 years ago. Given my card to have her endoscopist fax over records from recent colonoscopy. Ptosis of both eyelids 05/29/2024 Assessment & Plan (07/24/2024 8:24 AM RED HAT LINUX ADMINISTRATOR): -longstanding however has worsened over the last year or so -denies diplopia, weakness, difficulty swallowing -father had same issue and had surgery RUL>RODO -pt does endorse difficulty with superior peripheral vision, feels vision is greatly improved with manual lifting of lids -will refer to oculoplastics for ptosis repair next available Assessment & Plan (05/29/2024 11:24 AM RED HAT LINUX ADMINISTRATOR): Chronic, ongoing for the last 6 months. Her father had same issue, underwent blepharoplasty. Referral to Ophtho for evaluation. Apnea 05/29/2024 Assessment & Plan (05/29/2024 11:26 AM RED HAT LINUX ADMINISTRATOR): Chronic, has been saying she snores for years but lately has been gasping/choking at night and thinks she may stop breathing. Home sleep study ordered. Coronary artery disease invo lving [place] coronary artery of [place] heart without angina pectoris 02/02/2017 Assessment & Plan (05/29/2024 10:37 AM RED HAT LINUX ADMINISTRATOR): Chronic, stable. ASCVD: The ASCVD Risk score (Teagan DK, et al., 2019) failed to calculate for [...] 02/02/2017 Assessment & Plan (05/29/2024 10:44 AM RED HAT LINUX ADMINISTRATOR): Chronic, stable. Complications: None BP controlled on [...] 02/02/2017 Assessment & Plan (05/29/2024 10:46 AM RED HAT LINUX ADMINISTRATOR): Chronic, stable. ASCVD: The ASCVD Risk score [...] daily. She is in agreement with that. Immunizations Immunization Administration Dates Next Due Influenza, Quadrivalent, Nikia l Culture-based MDCK, Preservative Free, Antibiotic Free, Intramuscular 04/08/2022 Influenza, Trivalent, IM (MDV) 04/05/2021,2013,07/15/2012 Influenza, Trivalent, Preser vative Free, Intramuscular 05/29/2024,04/22/2015 Moderna SARS-CoV-2 Monovalen t Vaccination (12+ YRS) 09/22/2020,08/13/2020 Tdap 01/31/2024 Social History Tobacco Use Types Packs/Day Years [...] on file Legal Sex Female 3:07 PM RED HAT LINUX ADMINISTRATOR Gender Identity Not on file Sexual Orientation Not on file Last Filed Vital Signs Vital Sign Reading Time Taken Comments Blood Pressure 122/78 06/11/2024 8:14 AM RED HAT LINUX ADMINISTRATOR Pulse 102 06/11/2024 8:14 AM RED HAT LINUX ADMINISTRATOR Temperature 36.4 C (97.6 F) 06/11/2024 8:14 AM RED HAT LINUX ADMINISTRATOR Respiratory Rate 20 06/11/2024 8:14 AM RED HAT LINUX ADMINISTRATOR Oxygen Saturation 98% 06/11/2024 8:14 AM RED HAT LINUX ADMINISTRATOR Inhaled Oxygen Concentration - - Weight 86.2 kg (190 lb) 06/11/2024 8:14 AM RED HAT LINUX ADMINISTRATOR Height 172.7 cm (5' 8 ) 05/29/2024 11:01 AM RED HAT LINUX ADMINISTRATOR Body Mass Index 28.89 05/29/2024 11:01 AM RED HAT LINUX ADMINISTRATOR Plan of Treatment Not on file Procedures Procedure Name Priority Date/Time Associated Diagnosis Comments SCAN - OTHER ORDERS 09/11/2024 1 1:11 AM CDT HEPATITIS C ANTIBODY Routine 05/29/2024 11:45 AM RED HAT LINUX ADMINISTRATOR Need for hepatitis C screening test COLONOSCOPY Routine 12/02/2022 SCREENING MAMMOGRAM BILATERAL W RONAK Schedule Routine, Read Routine (OP Routine) 09/14/2020 from Last 3 Months or Most Recently Relevant to Health Maintenance Results * SCAN - OTHER ORDERS (09/11/2024 11:11 AM CDT) us Provider Scanning Final Result * Hepatitis C antibody Blood (05/29/2024 11:45 AM RED HAT LINUX ADMINISTRATOR) Hep C Ab Nonreactive Nonreactive Comment: Interpretive [...] on 2019. Blood 05/29/2024 11:4 5 AM RED HAT LINUX ADMINISTRATOR 05/29/2024 6:29 PM RED HAT LINUX ADMINISTRATOR Linda Mora MD LAB MICROBIOLOGY - GEN ERAL ORDERABLES Final Result [facility] [address] Department [place] [address] * (ABNORMAL) Colonoscopy (12/02/2022) Anatomical Region Laterality Modality Other Historical Provider ENDOSCOPY PROCEDURES Nancy l Result * Screening Mammogram Bilateral W Ronak (09/14/2020) Anatomical Region Laterality Modality Breast Bilateral Mammography Historical Provider IMG MAMMO PROCEDURES Nancy l Result from Last 3 Months or Most Recently Relevant to Health Maintenance Insurance [facility] CHO[facility] CHOICE PLUS [facility] HEALTH BENEFIT PLAN Care Teams Multiple Drill Operator Relationship Specialty Start Date End Date Linda Mora MD [address] [address] PCP - General Internal Medicine 05/29/24
--- OUTSIDE RECORDS SUMMARY | 2024-09-21 16:15 | XMS_ITS | CONTINUITY OF CARE DOCUMENT ---
Author Name chaunceyanaliamonica Address Unknown Organization [facility] Address [address] [place] [address] Phone [phone] Care Team Providers Care Building Supplies Salesperson Retail Name Role Phone JOBY GOMEZ, PHIL Phan Unavailable [phone] FRANCHESCA GOMEZ, EJ Unavailable INSURANCE PROVIDERS Payer name Policy type / Coverage type [place] [employer] ID BLUE PREFERRED HMO [facility] [id number] 1 [facility] [id number]
[2024-09-21 16:30] LABS: Basophils Percent Auto 0.5 % (0.2-1.2); Eosinophils Absolute Auto 0.1 K/mm3 (0-0.3); Eosinophils Percent Auto 1.5 % (0-4.4); Hematocrit 46.4 % (37.0-47.0); Hemoglobin 15.5 g/dL (12.0-15.0); Immature Granulocyte Absolute 0.01 K/mm3 (0.00-0.031); Immature Granulocyte Percent A 0.2 % (0-0.5); Lymphocytes Absolute Auto 2.27 K/mm3 (0.9-3.2); Lymphocytes Percent Auto 41.5 % (18.3-44.2); Mean Corpuscular HGB Conc 33.4 g/dl (32-36); Mean Corpuscular Hemoglobin 30.2 pg (26-34); Mean Corpuscular Volume 90.3 fl (80-100); Mean Platelet Volume 10.1 fl (7.4-10.4); Monocytes Absolute Auto 0.7 K/mm3 (0.1-0.6); Monocytes Percent Auto 13.2 % (2.6-8.5); Neutrophils Absolute Auto 2.4 K/mm3 (1.3-6.7); Neutrophils Percent Auto 43.1 % (45.5-73.1); Platelet Count Result 209 k/mm3 (150-375); Red Blood Count 5.14 M/mm3 (4.2-5.4); Red Cell Distribution Width 13.2 % (11.5-14.5); White Blood Count 5.5 K/mm3 (4.5-10.0)
[2024-09-21 16:40] LABS: Alanine Aminotransferase 29 U/L (6-35); Albumin Level 4.6 g/dL (3.5-5.1); Alkaline Phosphatase 81 U/L (38-126); Anion Gap 9 mmol/L (4-12); Aspartate Amino Transferase 35 U/L (14-36); Bilirubin,Total 1.3 mg/dL (0.2-1.3); Blood Urea Nitrogen 15 mg/dL (7-17); Calcium 9.5 mg/dL (8.4-10.2); Carbon Dioxide 30 mmol/L (22-30); Chloride 103 mmol/L (98-107); Estimated CRCL calculation 78 ml/min; Estimated Glomerular Filt Rate > 60; Glucose 86 mg/dL (65-110); Lipase 86 U/L (23-300); Potassium 3.9 mmol/L (3.4-5.0); Sodium 142 mmol/L (137-145)
[2024-09-21 16:42] LABS: Partial Thromboplastin Time 26.9 Seconds (22.3-36.8)
[2024-09-21 16:52] LABS: Troponin I < 0.012 ng/mL (0.000-0.034)
--- NOTE | 2024-09-21 16:53 | ED_ITS ---
HPI - General Adult General Chief complaint: Chest Pain Stated complaint: chest pain Time Seen by Provider: 09/21/24 16:17 History of Present Illness HPI narrative: 53-year-old female presents emergency department for evaluation for episode of chest pain. Patient was having chest pain that radiated to her jaw that lasted approximately 25 minutes. Patient does have a prior history of coronary disease and a CABG approximately 15 years ago. Patient follows up with [facility]. Patient has not had a recent stress test. Patient denies any current chest pain chest pressure or chest tightness. Patient feels back at her baseline. Related Data Home Medications ?Medication ?Instructions ?Recorded ?Confirmed ?Last Taken ?Type amlodipine 5 mg tablet 5 mg PO DAILY 08/29/23 08/29/23 Unknown History aspirin 325 mg tablet 325 mg PO DAILY 08/29/23 08/29/23 Unknown History atorvastatin 40 mg tablet 40 mg PO DAILY 08/29/23 08/29/23 Unknown History metoprolol tartrate 25 mg tablet 25 mg PO DAILY 08/29/23 08/29/23 Unknown History paroxetine mesylate(menop.sym) 7.5 7.5 mg PO DAILY 08/29/23 08/29/23 Unknown History mg capsule ramipril 10 mg capsule 10 mg PO DAILY 08/29/23 08/29/23 Unknown History valacyclovir 500 mg tablet 500 mg PO DAILY 08/29/23 08/29/23 Unknown History Allergies Allergy/AdvReac Type Severity Reaction Status Date / Time codeine AdvReac Intermediate Gastrointestinal Verified 09/21/24 16:22 Upset propoxyphene AdvReac Intermediate Hallucinati Verified 09/21/24 16:22 ng Review of Systems 2 Review of Systems: All systems reviewed & are unremarkable except as noted in HPI and below PMFSH Family History Family History Father Hypertension Family history of coronary artery disease Mother Family history of hypothyroidism Family history of coronary artery disease Social History Social History Smoking status: Never smoker Alcohol intake: current Alcohol use details: socially Substance use: never Substance use type: does not use Living arrangements: with family Spiritual care concerns: No Exam 2 Narrative: APPEARANCE: Well appearing, no pain, no distress, well-nourished. HEAD: normocephalic, atraumatic. EYES: PERRLA/EOMI, conjunctivae clear. NOSE: Normal no drainage EARS:TMS clear with good light reflex. THROAT: Pharynx clear, no exudate. NECK: Supple. No adenopathy, no masses. RESPIRATORY: Airway patent, respirations nonlabored. Clear to auscultation bilaterally, no rales, rhonchi, wheezing. CARDIOVASCULAR: Regular rate and rhythm without murmurs rubs or gallops. ABDOMINAL: Soft, nontender, nondistended, normal bowel sounds MUSCULOSKELETAL: Moves all extremities. Strength/ROM intact, No edema, No calf tenderness. NEURO: Alert. Cranial nerves II through XII intact. Good gait. Good coordination SKIN: Warm, dry. Normal Color Course Vital Signs Vital signs: Vital Signs Temperature 97.7 F 09/21/24 16:18 Pulse Rate 98 09/21/24 16:18 Respiratory Rate 16 09/21/24 16:18 Blood Pressure 145/103 H 09/21/24 16:18 Pulse Oximetry 98 09/21/24 16:18 Oxygen Delivery Room Air 09/21/24 16:18 Temperature 97.7 F 09/21/24 16:18 Pulse Rate 83 09/21/24 17:42 Respiratory Rate 13 09/21/24 17:34 Blood Pressure 144/92 H 09/21/24 17:42 Pulse Oximetry 100 09/21/24 17:34 Oxygen Delivery Room Air 09/21/24 16:26 Medical Decision Making [facility] Narrative Medical decision making narrative: 53-year-old female presents to the emergency department for evaluation for chest pain that last approximately 25 minutes but resolved prior to arrival. Patient is currently afebrile with no leukocytosis and hemoglobin of 15.5. Patient's INR is 1.0. Patient has no acute abnormalities on his CMP had negative serial troponins and negative serial EKGs. Patient's chest x-ray shows no acute cardiopulmonary abnormality. Differential Diagnosis Differential Diagnosis: ACS, pneumonia, pneumothorax Vital Signs Vital Signs: Vital Signs Temperature 97.7 F 09/21/24 16:18 Pulse Rate 98 09/21/24 16:18 Respiratory Rate 16 09/21/24 16:18 Blood Pressure 145/103 H 09/21/24 16:18 Pulse Oximetry 98 09/21/24 16:18 Oxygen Delivery Room Air 09/21/24 16:18 Temperature 97.7 F 09/21/24 16:18 Pulse Rate 83 09/21/24 17:42 Respiratory Rate 13 09/21/24 17:34 Blood Pressure 144/92 H 09/21/24 17:42 Pulse Oximetry 100 09/21/24 17:34 Oxygen Delivery Room Air 09/21/24 16:26 Lab Data Lab results reviewed: Yes I reviewed the patient's lab results. 09/21/24 16:25 09/21/24 16:25 Labs: Lab Results 09/21/24 09/21/24 Range/Units 16:25 19:18 WBC 5.5 (4.5-10.0) K/mm3 RBC 5.14 (4.2-5.4) M/mm3 Hgb 15.5 H (12.0-15.0) g/dL Hct 46.4 (37.0-47.0) % MCV 90.3 (80-100) fl MCH 30.2 (26-34) pg MCHC 33.4 (32-36) g/dl RDW 13.2 (11.5-14.5) % Plt Count 209 (150-375) k/mm3 MPV 10.1 (7.4-10.4) fl Immature Gran % (Auto) 0.2 (0-0.5) % Neut % (Auto) 43.1 L (45.5-73.1) % Lymph % (Auto) 41.5 (18.3-44.2) % Dixon % (Auto) 13.2 H (2.6-8.5) % Eos % (Auto) 1.5 (0-4.4) % Baso % (Auto) 0.5 (0.2-1.2) % Lymph # (Auto) 2.27 (0.9-3.2) K/mm3 Dixon # (Auto) 0.7 H (0.1-0.6) K/mm3 Eos # (Auto) 0.1 (0-0.3) K/mm3 Baso # (Auto) 0.0 (0.0-0.1) K/mm3 Abs Immat Gran (auto) 0.01 (0.00-0.031) K/mm3 Absolute Neuts (auto) 2.4 (1.3-6.7) K/mm3 Absolute Nucleated RBC 0.000 (0.0-0.012) K/mm3 Nucleated RBC % 0.0 (0.0-0.2) % PT 13.0 (11.1-14.7) Seconds INR 1.0 APTT 26.9 (22.3-36.8) Seconds Sodium 142 (137-145) mmol/L Potassium 3.9 (3.4-5.0) mmol/L Chloride 103 (98-107) mmol/L Carbon Dioxide 30 (22-30) mmol/L Anion Gap 9 (4-12) mmol/L BUN 15 (7-17) mg/dL Creatinine 0.82 (0.7-1.0) mg/dL Estim Creat Clear Calc 78 ml/min Estimated GFR > 60 (59 - ) Glucose 86 (65-110) mg/dL Calcium 9.5 (8.4-10.2) mg/dL Total Bilirubin 1.3 (0.2-1.3) mg/dL AST 35 (14-36) U/L ALT 29 (6-35) U/L Alkaline Phosphatase 81 (38-126) U/L Troponin I < 0.012 < 0.012 (0.000-0.034) ng/mL Total Protein 8.0 (6.3-8.2) g/dL Albumin 4.6 (3.5-5.1) g/dL Lipase 86 (23-300) U/L Imaging Data Radiologist's impression: Impressions Chest X-Ray 09/21/24 17:24 IMPRESSION: Status post sternotomy No active cardiopulmonary disease Discharge Plan Discharge Clinical Impression: Chest pain Patient Disposition: Home, Self-Care Condition: Stable Instructions: Antibiotic Form, Chest Pain (ED) Additional Instructions: Have close follow-up with your benefits advisor for additional outpatient cardiac testing. If you have any worsening symptoms then please call or return to the emergency department. Patient Language: Citizen Of [place] Prescriptions: No Action atorvastatin 40 mg tablet 40 mg PO DAILY amlodipine 5 mg tablet 5 mg PO DAILY valacyclovir 500 mg tablet 500 mg PO DAILY ramipril 10 mg capsule 10 mg PO DAILY metoprolol tartrate 25 mg tablet 25 mg PO DAILY paroxetine mesylate(menop.sym) 7.5 mg capsule 7.5 mg PO DAILY aspirin 325 mg Tablet 325 mg PO DAILY cephalexin 500 mg capsule 500 mg PO Q8H 10 Days Qty: 30 0RF mupirocin 2 % ointment 1 applic topical BID 7 Days Qty: 22 0RF Follow-up/Referrals: PHYSICIAN NOT ON STAFF,NONSTAFF [Primary Care Provider] - Quality HEART score for chest pain patients History: slightly suspicious ECG: normal Age: > 45 and < 65 years Risk factors: 1 or 2 risk factors Troponin: < or = to 1x normal limit Heart score: 2
--- OUTSIDE RECORDS SUMMARY | 2024-09-21 16:54 | XMS_ITS | Encounter Summary ---
Author Organization [facility] Healthcare Address [address] [place] [address] Care Team Providers Care Line Leader Name Role Phone Linda Mroa MD Primary Care Provider Reason for Visit * Reason Onset Date Comments Authorization/Certification 09/09/2024 Encounter Details Date Type Department Care Team (Late st Contact Info) Description 09/09/2024 Telephone [facility] Medical Group Primary Care at [facility] [address] [facility] [address] [place] [phone] Linda Mora MD [address] [address] Authorization/Certifica tion Social History Tobacco [...] on file Legal Sex Female 3:07 PM TIGHT BARREL INSPECTOR Gender Identity Not on file Sexual Orientation Not on file documented as of this encounter Miscellaneous Notes * Telephone Encounter - Monica Rai MA - 09/09/2024 1:46 PM CDT A order for [place] [facility] has been placed. * Telephone Encounter - Teresa Crooks - 09/09/2024 1:08 PM CDT Certification for Test/Procedure Type of Certification Needed: Pre-Cert for Test/Procedure Type of caller:Patient/other caller Type of test/procedure needed: At home sleep study Reason for test/procedure: Patient wakes herself up snoring. Is insurance in chart accurate? [facility] Facility name: Patient not sure. It is her first time getting this done Facility phone#: Wherever Dr. Mora suggests for the at home sleep study. Patient states she heard there is a place that will deliver the devise to patients home. Date test/procedure is scheduled: Not scheduled. Needs assistance setting up from office. Additional Comments: Patients secondary insurance has changed to: [employer] Insurance MemID: [id number] [employer] Does message need to be routed? Yes-Action Needed documented in this encounter Plan of Treatment Not on file documented as of this encounter Visit Diagnoses Not on filedocumented in this encounter Care Teams Line Leader Relationship Specialty Start Date End Date Linda Mora MD [address] [address] PCP - General Internal Medicine 05/29/24 documented as of this encounter
--- OUTSIDE RECORDS SUMMARY | 2024-09-21 16:54 | XMS_ITS | Referral Summary ---
Author Organization [facility] D Address [address] [place] [address] Care Team Providers Care Loop Machine Operator Name Role Phone Linda Mora MD Primary Care Provider Encounters Date Type Department Care Team Description 09/11/2024 Orders Only [facility] Health Information Management [address] [place] [address] Scanning, Provider 09/09/2024 Telephone [facility] Medical Group Primary Care at [facility] [address] [facility] [address] [place] [address] Linda Mora MD Authorization/Certif ication 07/23/2024 3:00 PM FLOWER PICKER Office Visit [facility] [address] [facility] [address] [place] [address] Monica Hansen, OD Ptosis of both eyelids 06/24/2024 Telephone [facility] Medical [facility] Cardiology [address] [facility] [address] [place] [address] Yoshi Delatorre MD Test Results [...] 05/29/2024 Assessment & Plan (05/29/2024 11:33 AM FLOWER PICKER): Reviewed health maintenance issues - diet, exercise, [...] 05/29/2024 Assessment & Plan (05/29/2024 11:20 AM FLOWER PICKER): Chronic, stable. S/p Mohs Follows with Dermatology, seen for skin exam 2-3 times per year. Serum total bilirubin elevated 05/29/2024 Assessment & Plan (05/29/2024 11:11 AM FLOWER PICKER): T bili elevated to 1.8 when checked during acute illness in 01/2024. Repeat today with fractionated bilirubin. 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 Is on paroxetine 7.5 mg daily prescribed by her OBGYN for vasomotor symptoms. Family history of colon cancer 05/29/2024 Assessment & Plan (05/29/2024 11:15 AM FLOWER PICKER): Chronic, stable. Has been getting regular colonoscopies which have all been normal, last was less than 5 years ago. Given my card to have her endoscopist fax over records from recent colonoscopy. Ptosis of both eyelids 05/29/2024 Assessment & Plan (07/24/2024 8:24 AM FLOWER PICKER): -longstanding however has worsened over the last year or so -denies diplopia, weakness, difficulty swallowing -father had same issue and had surgery RUL>RODO -pt does endorse difficulty with superior peripheral vision, feels vision is greatly improved with manual lifting of lids -will refer to oculoplastics for ptosis repair next available Assessment & Plan (05/29/2024 11:24 AM FLOWER PICKER): Chronic, ongoing for the last 6 months. Her father had same issue, underwent blepharoplasty. Referral to Ophtho for evaluation. Apnea 05/29/2024 Assessment & Plan (05/29/2024 11:26 AM FLOWER PICKER): Chronic, has been saying she snores for years but lately has been gasping/choking at night and thinks she may stop breathing. Home sleep study ordered. Coronary artery disease invo lving [place] coronary artery of [place] heart without angina pectoris 02/02/2017 Assessment & Plan (05/29/2024 10:37 AM FLOWER PICKER): Chronic, stable. ASCVD: The ASCVD Risk score [...] 02/02/2017 Assessment & Plan (05/29/2024 10:44 AM FLOWER PICKER): Chronic, stable. Complications: None BP controlled on [...] 02/02/2017 Assessment & Plan (05/29/2024 10:46 AM FLOWER PICKER): Chronic, stable. ASCVD: The ASCVD Risk score [...] on file Legal Sex Female 3:07 PM FLOWER PICKER Gender Identity Not on file Sexual Orientation Not on file Last Filed Vital Signs Vital Sign Reading Time Taken Comments Blood Pressure 122/78 06/11/2024 8:14 AM FLOWER PICKER Pulse 102 06/11/2024 8:14 AM FLOWER PICKER Temperature 36.4 C (97.6 F) 06/11/2024 8:14 AM FLOWER PICKER Respiratory Rate 20 06/11/2024 8:14 AM FLOWER PICKER Oxygen Saturation 98% 06/11/2024 8:14 AM FLOWER PICKER Inhaled Oxygen Concentration - - Weight 86.2 kg (190 lb) 06/11/2024 8:14 AM FLOWER PICKER Height 172.7 cm (5' 8 ) 05/29/2024 11:01 AM FLOWER PICKER Body Mass Index 28.89 05/29/2024 11:01 AM FLOWER PICKER Plan of Treatment Not on file Procedures Procedure Name Priority Date/Time Associated Diagnosis Comments SCAN - OTHER ORDERS 09/11/2024 1 1:11 AM CDT HEPATITIS C ANTIBODY Routine 05/29/2024 11:45 AM FLOWER PICKER Need for hepatitis C screening test COLONOSCOPY Routine 12/02/2022 SCREENING MAMMOGRAM BILATERAL W RONAK Schedule Routine, Read Routine (OP Routine) 09/14/2020 from Last 3 Months or Most Recently Relevant to Health Maintenance Results * SCAN - OTHER ORDERS (09/11/2024 11:11 AM CDT) us Provider Scanning Final Result * Hepatitis C antibody Blood (05/29/2024 11:45 AM FLOWER PICKER) Hep C Ab Nonreactive Nonreactive Comment: Interpretive [...] on 2019. Blood 05/29/2024 11:4 5 AM FLOWER PICKER 05/29/2024 6:29 PM FLOWER PICKER Linda Mora MD LAB MICROBIOLOGY - GEN ERAL ORDERABLES Final Result [facility] [address] Department [place] [address] * (ABNORMAL) Colonoscopy (12/02/2022) Anatomical Region Laterality Modality Other Historical Provider ENDOSCOPY PROCEDURES Nancy l Result * Screening Mammogram Bilateral W Ronak (09/14/2020) Anatomical Region Laterality Modality Breast Bilateral Mammography Historical Provider IMG MAMMO PROCEDURES Anncy l Result from Last 3 Months or Most Recently Relevant to Health Maintenance Insurance [facility] CHOICE PLUS [facility] CHOICE PLUS [facility] HEALTH BENEFIT PLAN Care Teams Loop Machine Operator Relationship Specialty Start Date End Date Linda Mora MD [address] [address] PCP - General Internal Medicine 05/29/24
--- OUTSIDE RECORDS SUMMARY | 2024-09-21 16:54 | XMS_ITS | CONTINUITY OF CARE DOCUMENT ---
Author Name chaunceyanaliamonica Address Unknown Organization [facility] Address [address] [facility] [address] [place] [address] Phone [phone] Care Team Providers Care Group Home Supervisor Name Role Phone JOBY GOMEZ, PHIL Phan Unavailable [phone] FRANCHESCA GOMEZ, EJ Unavailable [phone] INSURANCE PROVIDERS Payer name Policy type / Coverage type [place] [employer] party ID BLUE PREFERRED HMO [facility] [id number] 1 [facility] [id number]
--- OUTSIDE RECORDS SUMMARY | 2024-09-21 16:54 | XMS_ITS | Clinical Summary ---
Author Organization [facility] Address [address] [place] [address] Care Team Providers Care Linux System Admin Name Role Phone Linda Mora MD Primary [...] 05/29/2024 Assessment & Plan (05/29/2024 11:33 AM POLYSOMNOGRAPHIC TECHNICIAN): Reviewed health maintenance issues - diet, exercise, [...] 05/29/2024 Assessment & Plan (05/29/2024 11:20 AM POLYSOMNOGRAPHIC TECHNICIAN): Chronic, stable. S/p Mohs Follows with Dermatology, seen for skin exam 2-3 times per year. Serum total bilirubin elevated 05/29/2024 Assessment & Plan (05/29/2024 11:11 AM POLYSOMNOGRAPHIC TECHNICIAN): T bili elevated to 1.8 when checked during acute illness in 01/2024. Repeat today with fractionated bilirubin. Vasomotor symptoms due to menopause 05/29/2024 Assessment & Plan (05/29/2024 11:12 AM POLYSOMNOGRAPHIC TECHNICIAN): Chronic, stable. Is on paroxetine 7.5 mg daily prescribed by her OBGYN for vasomotor symptoms. Family history of colon cancer 05/29/2024 Assessment & Plan (05/29/2024 11:15 AM POLYSOMNOGRAPHIC TECHNICIAN): Chronic, stable. Has been getting regular colonoscopies which have all been normal, last was less than 5 years ago. Given my card to have her endoscopist fax over records from recent colonoscopy. Ptosis of both eyelids 05/29/2024 Assessment & Plan (07/24/2024 8:24 AM POLYSOMNOGRAPHIC TECHNICIAN): -longstanding however has worsened over the last year or so -denies diplopia, weakness, difficulty swallowing -father had same issue and had surgery RUL>RODO -pt does endorse difficulty with superior peripheral vision, feels vision is greatly improved with manual lifting of lids -will refer to oculoplastics for ptosis repair next available Assessment & Plan (05/29/2024 11:24 AM POLYSOMNOGRAPHIC TECHNICIAN): Chronic, ongoing for the last 6 months. Her father had same issue, underwent blepharoplasty. Referral to Ophtho for evaluation. Apnea 05/29/2024 Assessment & Plan (05/29/2024 11:26 AM POLYSOMNOGRAPHIC TECHNICIAN): Chronic, has been saying she snores for years but lately has been gasping/choking at night and thinks she may stop breathing. Home sleep study ordered. Coronary artery disease invo lving chil[place] coronary artery of [place] heart without angina pectoris 02/02/2017 Assessment & Plan (05/29/2024 10:37 AM POLYSOMNOGRAPHIC TECHNICIAN): Chronic, stable. ASCVD: The ASCVD Risk score [...] 02/02/2017 Assessment & Plan (05/29/2024 10:44 AM POLYSOMNOGRAPHIC TECHNICIAN): Chronic, stable. Complications: None BP controlled on [...] 02/02/2017 Assessment & Plan (05/29/2024 10:46 AM POLYSOMNOGRAPHIC TECHNICIAN): Chronic, stable. ASCVD: The ASCVD Risk score [...] Department Care Team Description 09/11/2024 Orders Only [facility] Health Information Management [address] [place] [address] Scanning, Provider 09/09/2024 Telephone [facility] Medical Group Primary Care at [facility] [address] [facility] [address] [place] [address] Linda Mora MD Authorization/Certif ication 07/23/2024 3:00 PM POLYSOMNOGRAPHIC TECHNICIAN Office Visit [facility] [address] [facility] [address] [place] [address] Monica Hansen, OD Ptosis of both eyelids 06/24/2024 Telephone [facility] Medical [facility] Cardiology [address] [facility] [address] [place] [address] Yoshi Delatorre MD Test Results [...] on file Legal Sex Female 3:07 PM POLYSOMNOGRAPHIC TECHNICIAN Gender Identity Not on file Sexual Orientation Not on file Obstetrics History Last Filed Vital Signs Vital Sign Reading Time Taken Comments Blood Pressure 122/78 06/11/2024 8:14 AM POLYSOMNOGRAPHIC TECHNICIAN Pulse 102 06/11/2024 8:14 AM POLYSOMNOGRAPHIC TECHNICIAN Temperature 36.4 C (97.6 F) 06/11/2024 8:14 AM POLYSOMNOGRAPHIC TECHNICIAN Respiratory Rate 20 06/11/2024 8:14 AM POLYSOMNOGRAPHIC TECHNICIAN Oxygen Saturation 98% 06/11/2024 8:14 AM POLYSOMNOGRAPHIC TECHNICIAN Inhaled Oxygen Concentration - - Weight 86.2 kg (190 lb) 06/11/2024 8:14 AM POLYSOMNOGRAPHIC TECHNICIAN Height 172.7 cm (5' 8 ) 05/29/2024 11:01 AM POLYSOMNOGRAPHIC TECHNICIAN Body Mass Index 28.89 05/29/2024 11:01 AM POLYSOMNOGRAPHIC TECHNICIAN Plan of Treatment Health Maintenance Due Date [...] HEPATITIS C ANTIBODY Routine 05/29/2024 11:45 AM POLYSOMNOGRAPHIC TECHNICIAN Need for hepatitis C screening test COLONOSCOPY Routine 12/02/2022 SCREENING MAMMOGRAM BILATERAL W RONAK Schedule Routine, Read Routine (OP Routine) 09/14/2020 from Last 3 Months or Most Recently Relevant to Health Maintenance Results * SCAN - OTHER ORDERS (09/11/2024 11:11 AM CDT) us Provider Scanning Final Result * Hepatitis C antibody Blood (05/29/2024 11:45 AM POLYSOMNOGRAPHIC TECHNICIAN) Hep C Ab Nonreactive Nonreactive Comment: Interpretive [...] on 2019. Blood 05/29/2024 11:4 5 AM POLYSOMNOGRAPHIC TECHNICIAN 05/29/2024 6:29 PM POLYSOMNOGRAPHIC TECHNICIAN Linda Mora MD LAB MICROBIOLOGY - GEN ERAL ORDERABLES Final Result [facility] [address] Department [place] [address] * (ABNORMAL) Colonoscopy (12/02/2022) Anatomical Region Laterality Modality Other Historical Provider ENDOSCOPY PROCEDURES Nancy l Result * Screening Mammogram Bilateral W Ronak (09/14/2020) Anatomical Region Laterality Modality Breast Bilateral Mammography Historical Provider IMG MAMMO PROCEDURES Nancy l Result from Last 3 Months or Most Recently Relevant to Health Maintenance Insurance [facility] CHOICE PLUS [facility] HMO/PPO Address: [address] [address] [place] [address] [facility] CHOICE PLUS [facility] HMO/PPO Address: [address] [address] [place] [address] [facility] HEALTH BENEFIT PLAN Care Teams Linux System Admin Relationship Specialty Start Date End Date Linda Mora MD [address] [address] PCP - General Internal Medicine 05/29/24
--- OUTSIDE RECORDS SUMMARY | 2024-09-21 16:54 | XMS_ITS | Clinical Summary ---
Author Organization [facility] Address [address] [place] [address] Care Team Providers Care Adapted Physical Education Aide Name Role Phone Shaji Escalera MD Primary Care Provider [phone] Source Comments [facility],non-owned Affiliates and Associated Physician Practices is amultiple site organization consisting of ambulatory clinics and hospital sitesin [place], [place], [place] and [place]. This disclosure is being madepursuant to the Care Everywhere program and may not contain all information available regarding this patient. Last updated 18.[facility] Allergies Active Allergy Reactions Criticality Noted Date [...] mouth at bedtime Active Vitamin D, Ergocalciferol, 96462 units CAPS Take 1 tablet by mouth [...] Diagnosed Date Coronary artery disease invo lving [place]oug[place] coronary artery of [place]oug[place] heart without angina pectoris 02/02/2017 Overview (10/17/2022): [...] this topic Medical Devices Implanted Type Area Launch Manager Device Identifier Shelf Expiration Date Model / Serial / Lot Sys Ureth Supp David Adv Fit Trnvg Polypro Implanted:Qty: 1 on 01/05/2023 by Lluvia Ruano MD at [facility] [employer] 06/20/2024 [id number] / / [id number] Procedures Procedure Name Priority Date/Time Associated Diagnosis [...] - 1.11 mg/dL 12/27/2022 1:13 PM CDT [facility] eGFR by CKD-EPI 69(L) >=90 mL/min/1.7 3 m2 12/27/2022 1:13 PM CDT [facility] Blood BLOOD SPECIMEN / Unknown Venipuncture / Unknown 12/27/2022 12:19 PM CDT 12/27/2022 12:50 PM CDT Lluvia Ruano MD LAB - CHEMISTRY ORD ERABLES [facility] [address] [place] [address] from Last 3 Months or Most Recently Relevant to Health Maintenance Care Teams Adapted Physical Education Aide Relationship Specialty Start Date End Date Shaji Escalera MD [address] [place] [address] PCP - General 08/25/22
--- NOTE | 2024-09-21 19:24 | ECG_ITS ---
Test Date: 2024-09-21 19:31:46 Measurements Intervals [place] Rate: 79 P: -1 ID: 160 QRS: 32 QRSD: 106 T: 38 QT: 390 QTc: 448 Interpretive Statements SINUS RHYTHM Compared to ECG 09/21/2024 16:21:54 No significant changes Electronically Signed On 09-22-2024 13:20:27 CDT by Daniel Howard M.D.
[2024-09-21 19:43] LABS: Troponin I < 0.012 ng/mL (0.000-0.034)
== END 2024-09-21 20:46 | disposition home or self-care (01) ==
PROVIDERS: Emergency Provider Emergency Medicine
DX: R07.9 Chest pain, unspecified (principal); I25.10 Atherosclerotic heart disease of native coronary artery without angina pectoris; Z95.1 Presence of aortocoronary bypass graft; Z79.82 Long term (current) use of aspirin; Z79.899 Other long term (current) drug therapy
CPT/HCPCS: 36415; 71046; 80053; 83690; 84484; 85025; 85610; 85730; 93005; 99284

== ENCOUNTER 2025-01-10 14:26 | Outpatient (CLI) | payer OTHER, SELFPAY ==
--- NOTE | ~2025-01-10 | MM_ITS ---
EXAMINATION: MM screening rufino BI w robbie HISTORY: Screening TECHNIQUE: Craniocaudal and mediolateral oblique 3-D tomosynthesis images were obtained and synthetic 2-D images were generated. CAD analysis was submitted and interpreted. COMPARISON: Comparison to multiple prior studies sequentially, with oldest reviewed study dated 02/09. BREAST PARENCHYMAL COMPOSITION: Not dense: There are scattered areas of fibroglandular density. FINDINGS: There is no evidence of suspicious mass, calcification, or architectural distortion to sugg est malignancy in either breast. There has been no suspicious interval change. IMPRESSION: 1. No mammographic evidence of malignancy. 2. Recommend routine screening mammography in one year. BI-RADS Category 1: Negative Reviewed, dictated and finalized at location B.
--- NOTE | ~2025-01-10 | DEXA_ITS ---
Bone Density Report Name: MARY JO YOST Age: 54 Sex: Female Ethnicity: White Date of : 1970 Indication: postmenopausal; screening for osteoporosis; height loss; Referring Provider: Jaydon, Tana Study: Bone densitometry was performed. Exam Date: January 10, 2025 Accession number: [id number] Bone Density: Region BMD T-score Z-score Classification AP Spine(L1-L4) 0.879 -1.5 -0.4 Osteopenia Femoral Neck (Left) 0.716 -1.2 -0.1 Osteopenia Total Hip (Left) 0.888 -0.4 0.3 Normal Femoral Neck (Right) 0.700 -1.3 -0.2 Osteopenia Total Hip (Right) 0.891 -0.4 0.3 Normal Femoral Neck Mean 0.708 -1.3 -0.2 Osteopenia Total Hip Mean 0.889 -0.4 0.3 Normal World Health Organization criteria for BMD impression classify patients as: Normal (T-score at or above -1.0), Osteopenia (T-score between -1.0 and -2.5), or Osteoporosis (T-score at or below -2.5). 10-year Fracture Risk(1): Major Osteoporotic Fracture 6.4% Hip Fracture 0.4% Reported Risk Factors: [place] (), Neck BMD=0.700, BMI=29.5 (1) FRAX(R) Version 3.08. Fracture probability calculated for an untreated patient. Fracture probability may be lower if the patient has received treatment. Clinical Information Provided by Patient: Has used the following medications: Calcium Patient maximum height was 68.5 Menopause Age: 46 No regular weight bearing exercise Onset of menses at age 10 Number of children 2 Impression: The patient has low bone mass, based on the Total Spine T-score. Discussion: BONE DENSITY IS LOW AT ONE OR MORE SKELETAL SITES. This patient's lowest T-score is low at one or more skeletal sites. It meets the World Health Organization's (WHO) criteria for ?low bone mass? (T-score between -1.0 and -2.5). The patient's 10-year risk of fracture as calculated by FRAX is less than the threshold where pharmacological therapy is recommended by the National Osteoporosis Foundation (NOF). However, all treatment decisions require clinical judgment and consideration of individual patient factors, including patient preferences, comorbidities, previous drug use, risk factors not captured in the FRAX model (e.g., frailty, falls, vitamin D deficiency, increased bone turnover, interval significant decline in bone density) and possible under or overestimation of fracture risk by FRAX. The patient should follow a healthful lifestyle (good nutrition with adequate calcium and vitamin D, and appropriate weight-bearing exercise). Follow-Up: Consider repeating this study in 2 to 3 years to reassess this patient's status, or sooner if there is some new clinical indication. Reported by: REDDY on 01/15/2025 7:57:00 AM. Reviewed, dictated and finalized at location A.
--- OUTSIDE RECORDS SUMMARY | 2025-01-10 14:34 | XMS_ITS | Clinical Summary ---
Author Organization [facility] D Address [address] [place] [phone] Care Team Providers Care Director Decision Support Name Role Phone Linda Mora MD Primary Care Provider Allergies Active Allergy Reactions Criticality Noted Date Comments Codeine Vomiting Low Severe vomitting Propoxyphene-Acetami nophen Hallucinations Medium Nightmare hallucinations Medications PARoxetine mesylate (BRISDELLE) 7.5 mg capsule take 1 capsule by oral route every day at bedtime 0 0 5 Active Additional Information Patient taking differently:7.5 mgoral Nightly, Indications: Vasomotor Symptoms associated with Menopause, Informant: Self, Reported on 12/18/2024 cholecalcifero l (cholecalcifer ol) 400 unit tablet 1 tablet daily 0 2 Active Additional Information Patient taking differently: 1 tablet/capsule oral Every morning, Indications: supplement, Informant: Self, Reported on 12/18/2024 valACYclovir (VALTREX) 500 mg tablet take 1 tablet (500MG) by oral route every day 0 2 Active Additional Information Patient taking differently:500 mgoral Nightly, Indications: Chronic Suppression, Informant: Self, Reported on 12/18/2024 aspirin 81 mg chewable tabletIndicati ons:acute myocardial infarction Take 1 tablet (81 mg total) by mouth daily 90 tablet 3 4 01/23/20 25 Active Additional Information Patient taking differently:81 mg oralEvery morning, Indications: acute myocardial infarction, prevention of thrombosis, Informant: Self, Reported on 12/18/2024 amLODIPine (NORVASC) 5 mg tablet Take 1 tablet (5 mg total) by mouth daily 90 tablet 3 4 Active Additional Information Patient taking differently:5 mg oralEvery morning, Indications: hypertension, Informant: Self, Reported on 12/18/2024 ramipriL (ALTACE) 10 mg capsule Take 1 capsule (10 mg total) by mouth daily 90 capsule 3 4 Active Additional Information Patient taking differently:10 mg oralEvery morning, Indications: hypertension, Informant: Self, Reported on 12/18/2024 atorvastatin (LIPITOR) 40 mg tablet Take 1 tablet (40 mg total) by mouth daily 90 tablet 3 4 Active Additional Information Patient taking differently:40 mg oralNightly, Indications: hyperlipidemia, Informant: Self, Reported on 12/18/2024 calcium carbonate (CALCIUM 500 ORAL)Indicatio ns:supplement Take 1 tablet by mouth every morning Active erythromycin (ILOTYCIN) ophthalmic ointment Apply to right eye 3 (three) times a day Apply 1/2 inch strip to right incision site three times a day. 3.5 g 2 5 01/18/20 25 Active calcium carb-mag hydrox-simeth 1,200 mg-270 mg -80 mg/10 mL suspension Take by mouth daily 12/14/19 25 Discontin ued(Alter celeste therapy) Active Problems Problem Noted Date Diagnosed Date Myogenic ptosis of right eyelid 10/23/2024 Decreased peripheral vision of right eye 025 Encounter for annual physical exam 05/29/2024 Assessment & Plan (05/29/2024 11:[address] SUPERVISOR): Reviewed health maintenance issues - diet, exercise, [...] 05/29/2024 Assessment & Plan (05/29/2024 11:[address] SUPERVISOR): Chronic, stable. S/p Mohs Follows with Dermatology, seen for skin exam 2-3 times per year. Serum total bilirubin elevated 05/29/2024 Assessment & Plan (05/29/2024 11:[address] SUPERVISOR): T bili elevated to 1.8 when checked during acute illness in 01/2024. Repeat today with fractionated bilirubin. Vasomotor symptoms due to menopause 05/29/2024 Assessment & Plan (05/29/2024 11:[address] SUPERVISOR): Chronic, stable. Is on paroxetine 7.5 mg daily prescribed by her OBGYN for vasomotor symptoms. Family history of colon cancer 05/29/2024 Assessment & Plan (05/29/2024 11:[address] SUPERVISOR): Chronic, stable. Has been getting regular colonoscopies which have all been normal, last was less than 5 years ago. Given my card to have her endoscopist fax over records from recent colonoscopy. Ptosis of both eyelids 05/29/2024 Assessment & Plan (07/24/2024 8:[address] SUPERVISOR): -longstanding however has worsened over the last year or so -denies diplopia, weakness, difficulty swallowing -father had same issue and had surgery RUL>RODO -pt does endorse difficulty with superior peripheral vision, feels vision is greatly improved with manual lifting of lids -will refer to oculoplastics for ptosis repair next available Assessment & Plan (05/29/2024 11:[address] SUPERVISOR): Chronic, ongoing for the last 6 months. Her father had same issue, underwent blepharoplasty. Referral to Ophtho for evaluation. Apnea 05/29/2024 Assessment & Plan (05/29/2024 11:[address] SUPERVISOR): Chronic, has been saying she snores for years but lately has been gasping/choking at night and thinks she may stop breathing. Home sleep study ordered. Coronary artery disease invo lving [place] coronary artery of [place] heart without angina pectoris 02/02/2017 Assessment & Plan (05/29/2024 10:[address] SUPERVISOR): Chronic, stable. ASCVD: The ASCVD Risk score [...] 02/02/2017 Assessment & Plan (05/29/2024 10:[address] SUPERVISOR): Chronic, stable. Complications: None BP controlled on [...] 02/02/2017 Assessment & Plan (05/29/2024 10:[address] SUPERVISOR): Chronic, stable. ASCVD: The ASCVD Risk score [...] Encounters Date Type Department Care Team Description 12/31/2024 8:00 AM CDT Office Visit [facility] 6th [place] [phone] Floyd Mann MD Myogenic ptosis of right eyelid (Primary Dx) 12/18/2024 4:15 PM CDT - 12/18/2024 4:50 PM CDT Surgery [facility] Surgery at [address] [phone] Floyd Mann MD RIGHT INTERNAL PTOSIS REPAIR 12/18/2024 4:08 PM CDT Anesthesia Event [facility] Surgery at [address] [phone] Vik Darden MD Smith, Christine A., NP 12/18/2024 1:41 PM CDT - 12/18/2024 4:58 PM CDT Hospital Encounter [facility] Surgery at [address] [phone] Floyd Mann MD Myogenic ptosis of right eyelid [H02.421] (Primary Dx); Decreased peripheral vision of right eye [H53.451] Discharge Disposition: Discharge to home or self care 12/12/2024 Documentation [facility] [address] [facility] 6th [place] [phone] Floyd Mann MD Pre Cert 12/02/2024 Telephone [facility] [address] [place] [address] Floyd Mann MD 10/16/2024 Orders Only [facility] [address] [facility] 2nd Floor [address] [place] [phone] Floyd Mann MD Ptosis of both eyelids (Primary Dx) 10/14/2024 9:15 AM CDT Office Visit [facility] [address] [facility] 2nd Floor [address] [place] [phone] Floyd Mann MD Myogenic ptosis of right eyelid (Primary Dx); Decreased peripheral vision of right eye from Last 3 Months Immunizations Immunization Administration Dates Next Due Influenza, Quadrivalent, Nikia l Culture-based MDCK, Preservative Free, Antibiotic Free, Intramuscular 04/08/2022 Influenza, Trivalent, IM (MDV) 04/05/2021,2013,07/15/2012 Influenza, Trivalent, Preser vative Free, Intramuscular 05/29/2024,04/22/2015 Moderna SARS-CoV-2 Monovalen t Vaccination (12+ YRS) 09/22/2020,08/13/2020 Tdap 01/31/2024 ZOSTER Recombinant 10/05/2024,07/27/2024 Surgical History Surgery Date Site/Laterality Comments BREAST LUMPECTOMY 07/03/2008 - 07/02/2009 Right Benign breast lumpectomy ANTERIOR CRUCIATE LIGAMENT REPAIR 07/03/2005 - 07/02/2006 Right knee ACL replacement CORONARY ARTERY BYPASS GRAFT 07/03/2010 - 07/02/2011 Coronary Artery Bypass Graft OOPHERECTOMY 07/03/1990 - 07/02/1991 Right cyst removed, benign BLADDER SUSPENSION 01/05/2023 MELANOMA RESECTION 07/03/2018 - 07/02/2019 melanoma on back removed BLEPHAROPTOSIS REPAIR 12/18/2024 Right RIGHT INTERNAL PTOSIS REPAIR (Right: Eye) Medical History Medical History Date Comments Hx Other Medical Anxiety and fat igue Hypertension Hyperlipidemia Heart valve disease Anxiety Heart disease Presbyopia Ptosis of both upper eyelids 07/23/2024 RUL > RODO Sleep apnea Family History Medical History Relation Name Comments Colon cancer Father Chris Kurtz Hypertension Father Chris Kurtz Ptosis Father Chris Kurtz Arrhythmia Mother Katerina Kurtz Arrhythmias; Heart disease Mother Katerina Kurtz Anesthesia problems Neg Hx Breast cancer Neg Hx Relation Name Status Comments Father Chris Kurtz Mother Katerina Kurtz Alive Social History Tobacco Use Types Packs/Day Years Used Date Smoking Tobacco: Never Cigarettes Smokeless Tobacco: Never Alcohol Use Standard Drinks/Week Comments Yes 0 (1 standard drink = 0.6 oz pur e alcohol) AUDIT-C Answer Date Recorded Q1: How often do you have a drink containing alc ohol? 2-4 times a month 12/18/2024 Q2: How many drinks containi ng alcohol do you have on a typical day when you are drinking? 1 or 2 12/18/2024 Q3: How often do you have si x or more drinks on one occasion? Never 12/18/2024 PHQ-2 Answer Date Recorded PHQ-2 Total Score (If total score is 3 or more points, staff should administer the PHQ-9) 0 05/29/2024 PHQ-9 Answer Date Recorded PHQ-9 Total Score 0 05/29/2024 Personal Safety Answer Date Recorded Have you ever been in or are you currently in a harmful physical or emotional relationship or is someone making you feel afraid or unsafe? Denies 12/18/2024 Comments No Sex and Gender Information Value Date Recorded Sex Assigned at Not on file Legal Sex Female 3:[address] SUPERVISOR Gender Identity Not on file Sexual Orientation Not on file Obstetrics History Last Filed Vital Signs Vital Sign Reading Time Taken Comments Blood Pressure 131/78 12/18/2024 4:50 PM CDT Pulse 70 12/18/2024 4:50 PM CDT Temperature 36.2 C (97.2 F) 12/18/2024 2:18 PM CDT Respiratory Rate 23 12/18/2024 4:50 PM CDT Oxygen Saturation 96% 12/18/2024 4:50 PM CDT Inhaled Oxygen Concentration - - Weight 85.7 kg (189 lb) 12/18/2024 2:18 PM CDT Height 172.7 cm (5' 8) 12/13/2024 4:20 PM CDT Body Mass Index 28.74 12/13/2024 4:20 PM CDT Plan of Treatment Health Maintenance Due Date Last Done Comments Hepatitis B Screening 1988 Covid-19 Vaccine ( season) 2024 06/18/2021, 09/22/2020, 08/13/2020 Cervical Cancer Screening 08/21/2024 08/21/2023 Breast Cancer Screening-Mammogram 09/25/2024 09/26/2023, 09/14/2020 Influenza Vaccine (#1) 2025 , 04/08/2022, 04/05/2021, Additional history exists Depression Screening 05/29/2025 05/29/2024, 05/29/20 24 Regular Well Visit/Exam 18-64 05/29/2025 05/29/2024 Colon Cancer Screening-Colonoscopy 12/02/2032 12/02/2022 DTaP/Tdap/Td Vaccine (2 - Td or Tdap) 01/30/2034 01/31/2024 Colon Cancer Screening-CT Colonography Discontinued 12/02/2022 Colon Cancer Screening-DNA Stool Discontinued 12/02/2022 Colon Cancer Screening-FIT Discontinued 12/02/2022 Colon Cancer Screening-Sigmoidoscopy Discontinued 12/02/2022 Hepatitis C Screening Completed 05/29/2024 Zoster Vaccine Completed 10/05/2024, 07/27/2024 Pneumococcal vaccine <65 Aged Out No longer eligible based on patient's age to complete this topic Procedures Procedure Name Priority Date/Time Associated Diagnosis Comments REPAIR PTOSIS LEVATOR EXTERNAL. 12/18/2024 4:08 PM CDT Myogenic ptosis of right eyelid Decreased peripheral vision of right eye Case Notes 12/16@1539: make fifth case per Mariangel via email. FERNANDO GVF LIMITED/PTOSIS - OD - RIGHT EYE Routine 10/14/2024 9:15 AM CDT Myogenic ptosis of right eyelid HEPATITIS C ANTIBODY Routine 05/29/2024 11:[address] SUPERVISOR Need for hepatitis C screening test COLONOSCOPY Routine 12/02/2022 SCREENING MAMMOGRAM BILATERAL W RONAK Schedule Routine, Read Routine (OP Routine) 09/14/2020 from Last 3 Months or Most Recently Relevant to Health Maintenance Results * GVF Limited/Ptosis - OD - Right Eye (10/14/2024 9:15 AM CDT) Anatomical Region Laterality Modality Head Visual Field Narrative 11/02/2024 7:24 PM CDT Images from the original result were not included. Findings: Right eye (OD): Untaped superior meridian at <10 degrees and taped superior meridian at 40 degrees. Impression: Significant improvement in superior visual field with elevation, right side. us Floyd Mann MD OPHTH ELECTRORETINOGRAPH Y Final Result * Hepatitis C antibody Blood (05/29/2024 11:[address] SUPERVISOR) Hep C Ab Nonreactive Nonreactive Comment: Interpretive [...] on 2019. Blood 05/29/2024 11:[address]OR 05/29/2024 6:[address] SUPERVISOR Linda Mora MD LAB MICROBIOLOGY - GEN ERAL ORDERABLES Final Result [facility] [address] Department [place] [address] * (ABNORMAL) Colonoscopy (12/02/2022) Anatomical Region Laterality Modality Other Historical Provider ENDOSCOPY PROCEDURES Nancy l Result * Screening Mammogram Bilateral W Ronak (09/14/2020) Anatomical Region Laterality Modality Breast Bilateral Mammography Historical Provider IMG MAMMO PROCEDURES Nancy l Result from Last 3 Months or Most Recently Relevant to Health Maintenance Insurance [facility] CHOICE PLUS [facility] HMO/PPO Address: [facility] [address] [place] [address] [facility] HE[employer] BENEFIT PLAN Member Subscriber Plan / Payer (Ef fective 2024-Present) Name:Margie Barragan Relation to Subscriber:Spouse Name:Salvador Barragan Date of :1964 (Home) Address: [address] [place] [address] Payer ID:[id number] Group ID:[id number] Type:CIGNA HMO/PPO Address: [place], [place] [facility] CHOICE PLUS [facility] HMO/PPO Address: [address] HEALTH BENEFIT PLAN Member Subscriber Plan / Payer (Ef fective 2024-Present) Name:Margie Barragan Relation to Subscriber:Spouse Name:Salvador Barragan Date of :1964 (Home) Address: [address] [place] [address] Payer ID:[id number] Group ID:[id number] Type:CIG[employer] HMO/PPO Address: [place], [place] Care Teams Director Decision Support Relationship Specialty Start Date End Date Linda Mora MD [address] [address] PCP - General Internal Medicine 05/29/24
--- OUTSIDE RECORDS SUMMARY | 2025-01-10 14:34 | XMS_ITS | Referral Summary ---
Author Organization [facility] D Address [address] [place] [phone] Care Team Providers Care Scallop Binder Name Role Phone Linda Mora MD Primary Care Provider Encounters Date Type Department Care Team Description 12/31/2024 8:00 AM CDT Office Visit [facility] 6th [place] [phone] Floyd Mann MD Myogenic ptosis of right eyelid (Primary Dx) 12/18/2024 4:15 PM CDT - 12/18/2024 4:50 PM CDT Surgery [facility] Surgery at [address] [phone] Floyd Mann MD RIGHT INTERNAL PTOSIS REPAIR 12/18/2024 4:08 PM CDT Anesthesia Event [facility] Surgery at [address] [phone] Vik Darden MD Smith, Christine A., NP 12/18/2024 1:41 PM CDT - 12/18/2024 4:58 PM CDT Hospital Encounter [facility] Surgery at [address] [phone] Floyd Mann MD Myogenic ptosis of right eyelid [H02.421] (Primary Dx); Decreased peripheral vision of right eye [H53.451] Discharge Disposition: Discharge to home or self care 12/12/2024 Documentation [facility] [address] [facility] 6th [place] [address] Floyd Mann MD Pre Cert 12/02/2024 Telephone [facility] [address] [place] [address] Floyd Mann MD 10/16/2024 Orders Only [facility] [address] [facility] 2nd Floor [address] [place] [address] Floyd Mann MD Ptosis of both eyelids (Primary Dx) 10/14/2024 9:15 AM CDT Office Visit [facility] [address] [facility] 2nd Floor [address] [place] [address] Floyd Mann MD Myogenic ptosis of right eyelid (Primary Dx); Decreased peripheral vision of right eye from Last 3 Months Allergies Active Allergy [...] 05/29/2024 Assessment & Plan (05/29/2024 11:33 AM HOME DELIVERY DRIVER): Reviewed health maintenance issues - diet, exercise, [...] 05/29/2024 Assessment & Plan (05/29/2024 11:20 AM HOME DELIVERY DRIVER): Chronic, stable. S/p Mohs Follows with Dermatology, seen for skin exam 2-3 times per year. Serum total bilirubin elevated 05/29/2024 Assessment & Plan (05/29/2024 11:11 AM HOME DELIVERY DRIVER): T bili elevated to 1.8 when checked during acute illness in 01/2024. Repeat today with fractionated bilirubin. 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 Is on paroxetine 7.5 mg daily prescribed by her OBGYN for vasomotor symptoms. Family history of colon cancer 05/29/2024 Assessment & Plan (05/29/2024 11:15 AM HOME DELIVERY DRIVER): Chronic, stable. Has been getting regular colonoscopies which have all been normal, last was less than 5 years ago. Given my card to have her endoscopist fax over records from recent colonoscopy. Ptosis of both eyelids 05/29/2024 Assessment & Plan (07/24/2024 8:24 AM HOME DELIVERY DRIVER): -longstanding however has worsened over the last year or so -denies diplopia, weakness, difficulty swallowing -father had same issue and had surgery RUL>RODO -pt does endorse difficulty with superior peripheral vision, feels vision is greatly improved with manual lifting of lids -will refer to oculoplastics for ptosis repair next available Assessment & Plan (05/29/2024 11:24 AM HOME DELIVERY DRIVER): Chronic, ongoing for the last 6 months. Her father had same issue, underwent blepharoplasty. Referral to Ophtho for evaluation. Apnea 05/29/2024 Assessment & Plan (05/29/2024 11:26 AM HOME DELIVERY DRIVER): Chronic, has been saying she snores for years but lately has been gasping/choking at night and thinks she may stop breathing. Home sleep study ordered. Coronary artery disease invo lving lummi coronary artery of lum[place] heart without angina pectoris 02/02/2017 Assessment & Plan (05/29/2024 10:37 AM HOME DELIVERY DRIVER): Chronic, stable. ASCVD: The ASCVD Risk score [...] 02/02/2017 Assessment & Plan (05/29/2024 10:44 AM HOME DELIVERY DRIVER): Chronic, stable. Complications: None BP controlled on [...] 02/02/2017 Assessment & Plan (05/29/2024 10:46 AM HOME DELIVERY DRIVER): Chronic, stable. ASCVD: The ASCVD Risk score [...] YRS) 09/22/2020,08/13/2020 Tdap 01/31/2024 ZOSTER Recombinant 10/05/2024,07/27/2024 Social History Tobacco Use Types Packs/Day Years [...] on file Legal Sex Female 3:07 PM HOME DELIVERY DRIVER Gender Identity Not on file Sexual Orientation [...] 12/13/2024 4:20 PM CDT Plan of Treatment Not on file Procedures Procedure Name Priority Date/Time Associated Diagnosis Comments REPAIR PTOSIS LEVATOR EXTERNAL. 12/18/2024 4:08 PM CDT Myogenic ptosis of right eyelid Decreased peripheral vision of right eye Case Notes 12/16@1535: make fifth case per Mariangel via email. FERNANDO GVF LIMITED/PTOSIS - OD - RIGHT EYE Routine 10/14/2024 9:15 AM CDT Myogenic ptosis of right eyelid HEPATITIS C ANTIBODY Routine 05/29/2024 11:45 AM HOME DELIVERY DRIVER Need for hepatitis C screening test COLONOSCOPY [...] Hepatitis C antibody Blood (05/29/2024 11:45 AM HOME DELIVERY DRIVER) Hep C Ab Nonreactive Nonreactive Comment: Interpretive [...] on 2019. Blood 05/29/2024 11:4 5 AM HOME DELIVERY DRIVER 05/29/2024 6:29 PM HOME DELIVERY DRIVER Linda Mora MD LAB MICROBIOLOGY - GEN ERAL ORDERABLES Final Result [facility] [address] Department [place] [address] * (ABNORMAL) Colonoscopy (12/02/2022) Anatomical Region Laterality Modality Other Historical Provider ENDOSCOPY PROCEDURES Nancy l Result * Screening Mammogram Bilateral W Ronak (09/14/2020) Anatomical Region Laterality Modality Breast Bilateral Mammography Historical Provider IMG MAMMO PROCEDURES Nancy l Result from Last 3 Months or Most Recently Relevant to Health Maintenance Insurance [facility] CHOICE PLUS HEALTH BENEFIT PLAN [facility] CHOICE PLUS Member Subscriber Plan / Payer (Ef fective 2017-Present) Name:Margie Barragan Relation to Subscriber:Self Name:BarraganMargie Payer ID:[id number] (NAIC) Type:[facility] HMO/PPO Address: [address] HEALTH BENEFIT PLAN Care Teams Scallop Binder Relationship Specialty Start Date End Date Linda Mora MD [address] [address] PCP - General Internal Medicine 05/29/24
--- OUTSIDE RECORDS SUMMARY | 2025-01-10 14:34 | XMS_ITS | Clinical Summary ---
Author Organization [facility] Address [address] [place] [address] Care Team Providers Care Forest Worker Name Role Phone Shaji Escalera MD Primary Care Provider [phone] Source Comments [facility],non-owned Affiliates and Associated Physician Practices is amultiple site organization consisting of ambulatory clinics and hospital sitesin [place], [place], [place] and [place]. This disclosure is being madepursuant to the Care Everywhere program and may not contain all information available regarding this patient. Last updated 18.[facility] Allergies Active Allergy Reactions Criticality Noted Date Comments Codeine Vomiting Medium 10/17/2022 Medications * Be aware that medications may not be up to date on this document. Alwaysverify current medications with the patient. amLODIPine (Norvasc) 5 MG tablet Take 1 [...] mouth at bedtime Active Vitamin D, Ergocalciferol, 41105 units CAPS Take 1 tablet by mouth once daily Active aspirin (Aspirin) 325 MG tablet Take 1 (one) tablet by mouth once daily Active Calcium Carbonate-Vit D-Min (CALCIUM 1200 PO) Take 1 tablet by mouth once daily Active oxyCODONE, immediate release, (Roxicodone) 5 MG tabletIndicatio ns:Postoperativ e state Take 1 (one) tablet by mouth [...] Diagnosed Date Coronary artery disease invo lving [place] coronary artery of [place] heart without angina pectoris 02/02/2017 Overview (10/17/2022): [...] drink = 0.6 oz pur e alcohol) Comments No Sex and Gender Information Value Date Recorded Sex Assigned at Not on file Legal Sex Female 6:28 AM PROJECT SCIENTIST Gender Identity Not on file Sexual Orientation [...] 3:56 PM CDT Height 174 cm (5' 8.5) 02/09/2023 3:56 PM CDT Body Mass Index [...] - COLON CA SCREENING 1970 MAMMOGRAM 1970 HIV SCREENING 11/29/1983 HEPATITIS C SCREENING 11/24/1986 DTAP/TDAP/TD VACCINES (1 - Tdap) 11/29/1987 HEPATITIS B VACCINE (1 of 3 - 19+ 3-dose series) 11/29/1987 PAP SMEAR 1989 PNEUMOCOCCAL VACCINE 50+ (1 of 1 - PCV) 2018 ZOSTER VACCINE (1 of 2) 2018 COVID-19 VACCINE (4 - season) 2024 06/18/2021, 09/22/2020, 08/13/2020 DEPRESSION SCREENING 07/03/2024 INFLUENZA VACCINE (#1) 2025 2, 04/05/2021, 04/22/2015, Additional history exists SCREENING FOR DIABETES 02/03/2026 3, 12/27/2022, 01/17/2022 HIB VACCINE Aged Out No longer eligi [...] this topic Medical Devices Implanted Type Area Time Study Technician Device Identifier Shelf Expiration Date Model / Serial / Lot Sys Ureth Supp David Adv Fit Trnvg Polypro Implanted:Qty: 1 on 01/05/2023 by Lluvia Ruano MD at [facility] [employer] [place] [employer] 06/20/2024 [id number] / / [id number] Procedures Procedure Name Priority Date/Time Associated Diagnosis [...] - 145 mmol/L 12/27/2022 1:13 PM CDT [facility] Potassium 3.9 3.5 - 5.1 mmol/L 12/27/2022 1:13 PM CDT [facility] Chloride 109(H) 98 - 107 mmol/L 12/27/2022 1:13 PM CDT [facility] CO2 25 23 - 31 mmol/L 12/27/2022 1:13 PM CDT [facility] Calcium 9.0 8.4 - 10.4 mg/dL 12/27/2022 1:13 PM CDT [facility] Anion Gap 9 8 - 18 mmol/L 12/27/2022 1:13 PM CDT [facility] BUN 12 9.8 - 20.1 mg/dL 12/27/2022 1:13 PM CDT [facility] Creatinine 0.97 0.57 - 1.11 mg/dL 12/27/2022 1:13 PM CDT [facility] eGFR by CKD-EPI 69(L) >=90 mL/min/1.7 3 m2 12/27/2022 1:13 PM CDT [facility] Blood BLOOD SPECIMEN / Unknown Venipuncture / Unknown 12/27/2022 12:19 PM CDT 12/27/2022 12:50 PM CDT Lluvia Ruano MD LAB - CHEMISTRY ORDERABLES Final Result [facility] [address] [place] [address] from Last 3 Months or Most Recently Relevant to Health Maintenance Insurance [facility] Address: [facility] [id number] Care Teams Forest Worker Relationship Specialty Start Date End Date Shaji Escalera MD [address] [place] [id number] PCP - General 08/25/22
== END 2025-01-10 14:27 | disposition home or self-care (01) ==
LOC: CHSIMG 14:32
PROVIDERS: Visit Provider Nurse Practitioner
DX: Z12.31 Encounter for screening mammogram for malignant neoplasm of breast (principal); Z78.0 Asymptomatic menopausal state; M85.89 Other specified disorders of bone density and structure, multiple sites
CPT/HCPCS: 77063; 77067; 77080